=== PATIENT | female | born 1960 | race African-American/Black ===

== ENCOUNTER 2022-01-17 22:34 | Inpatient (IN) | payer MEDICARE, MEDICAID ==
[~2022-01-17] VITALS: Ht 161.3 cm; Wt 103.9 kg
[2022-01-17 22:34] VITALS: BP 140/70
[~2022-01-17 22:34] MED LIST: ASPI-1406 PO; ATOR20TA65 PO; BACL-141 PO; CARV12.545 PO; DOCU50CA13 PO; FERR-54 MT; FURO40TA5 PO; GLAT40SY SQ; METF-416 PO; MOME0.13 INH; SACU1TAB7 PO; TRAM50TA3 PO
[2022-01-18] MEDS ORDERED: NON FORMULARY PATIENT HOME MED SUBCUT SCH (00:15)
[2022-01-18] MEDS ORDERED: ONDANSETRON HCL 4MG/2ML INJ IV PRN (00:15)
[2022-01-18] MEDS ORDERED: BENZONATATE 100MG CAPSULE PO PRN (00:15)
[2022-01-18] MEDS ORDERED: DEXTROSE 50% WATER 50ML SYRINGE IV PRN (00:15)
[2022-01-18] MEDS ORDERED: CLONIDINE 0.1MG TABLET PO PRN (00:15)
[2022-01-18] MEDS ORDERED: NALOXONE HCL 0.4 MG/ML 1ML VIAL IV PRN (00:15)
[2022-01-18] MEDS ORDERED: NON FORMULARY PATIENT HOME MED XX SCH (00:15)
[2022-01-18] MEDS ORDERED: DIPHENHYDRAMINE 50MG/ML VIAL IV PRN (00:15)
[2022-01-18] MEDS ORDERED: IPRATROPIUM/ALBUTEROL 0.5-3(2.5)MG/3ML NEB HHN PRN (00:15)
[2022-01-18] MEDS ORDERED: *PATIENT'S OWN MEDICATION STORAGE XX SCH (02:15)
[2022-01-18] MEDS: HYDROCODONE/ACETAMINOPHEN 5/325MG TABLET PO PRN ×2 (03:04→13:47)
[2022-01-18 06:05] LABS: BASOPHILS % 0.3 % (0.0-2.0); EOSINOPHILS % 0.2 % (0.0-5.0); HEMOGLOBIN. 11.1 g/dL (12.0-16.0); LYMPHOCYTES % 15.6 % (20.0-50.0); MEAN CORPUSCULAR VOLUME 84.5 fL (81.0-99.0); MEAN PLATELET VOLUME 9.7 fl (7.4-10.4); MONOCYTES % 10.5 % (2.0-8.0); NEUTROPHILS % 73.4 % (40.0-76.0); PLATELET 308 x1000/uL (130-400); RED BLOOD CELL COUNT 4.26 mill/uL (4.2-5.4); RED CELL DISTRIBUTION WIDTH 15.8 % (11.6-14.6)
[2022-01-18 06:27] LABS: CHLORIDE 102 mEq/L (98-107)
[2022-01-18] MEDS: NAPROXEN 375MG TABLET PO PRN ×2 (07:06→07:32)
[2022-01-18] MEDS: INSULIN LISPRO 100 UNITS/ML SUBCUT SCH ×4 (07:15→21:00)
[2022-01-18] MEDS: BLOOD SUGAR DIAGNOSTIC STRIP TEST SCH ×4 (07:26→21:00)
[2022-01-18] MEDS: FUROSEMIDE 40MG TABLET PO SCH ×2 (07:36→17:38)
[2022-01-18] MEDS: PANTOPRAZOLE 40MG DR TABLET PO SCH (07:36)
[2022-01-18] MEDS: GABAPENTIN 300MG CAPSULE PO SCH ×3 (07:36→22:00)
[2022-01-18 08:00] VITALS: BP 99/51
[2022-01-18] MEDS: DOCUSATE SODIUM 100MG CAPSULE PO SCH ×2 (08:37→17:38)
[2022-01-18] MEDS: CARVEDILOL 12.5MG TABLET PO SCH ×2 (08:37→21:00)
[2022-01-18] MEDS: LACTULOSE 20G/30ML UDC PO SCH (08:37)
[2022-01-18] MEDS: ENOXAPARIN 30MG/0.3ML SYR SUBCUT SCH ×2 (08:37→21:09)
[2022-01-18] MEDS: ASPIRIN 81MG EC TABLET PO SCH (08:38)
[2022-01-18] MEDS: BACLOFEN 10MG TABLET PO SCH ×3 (08:38→17:38)
[2022-01-18] MEDS: POLYETHYLENE GLYCOL 3350 (17GM) 1 DOSE PACK PO SCH ×2 (08:38→09:00)
[2022-01-18] MEDS: METFORMIN HCL 500MG TABLET PO SCH ×2 (08:38→17:38)
[2022-01-18] MEDS: FERROUS SULFATE 325MG TABLET PO SCH (08:38)
[2022-01-18] MEDS: COPAXONE 40 MG/ML SUBCUT SCH (08:53)
[2022-01-18] MEDS ORDERED: PREDNISONE 20MG TABLET PO SCH (09:00)
[2022-01-18 20:00] VITALS: BP 106/46
[2022-01-18] MEDS: ATORVASTATIN CALCIUM 20MG TABLET PO SCH (21:09)
[2022-01-19] MEDS: HYDROCODONE/ACETAMINOPHEN 5/325MG TABLET PO PRN ×4 (03:36→20:41)
[2022-01-19] MEDS: BLOOD SUGAR DIAGNOSTIC STRIP TEST SCH ×4 (05:36→20:51)
[2022-01-19] MEDS: INSULIN LISPRO 100 UNITS/ML SUBCUT SCH ×4 (05:37→20:58)
[2022-01-19] MEDS: PANTOPRAZOLE 40MG DR TABLET PO SCH (06:27)
[2022-01-19] MEDS: FUROSEMIDE 40MG TABLET PO SCH ×2 (06:27→10:31)
[2022-01-19] MEDS: GABAPENTIN 300MG CAPSULE PO SCH ×2 (06:27→20:42)
[2022-01-19 07:04] LABS: BASOPHILS % 0.5 % (0.0-2.0); EOSINOPHILS % 0.1 % (0.0-5.0); HEMATOCRIT. 31.6 % (36.0-48.0); HEMOGLOBIN. 10.1 g/dL (12.0-16.0); LYMPHOCYTES % 8.4 % (20.0-50.0); MEAN CORPUSCULAR HEMOGLOBIN 26.7 pg (28.0-32.0); MEAN CORPUSCULAR VOLUME 83.3 fL (81.0-99.0); MEAN PLATELET VOLUME 9.8 fl (7.4-10.4); MONOCYTES % 7.1 % (2.0-8.0); NEUTROPHILS % 83.9 % (40.0-76.0); PLATELET 309 x1000/uL (130-400); RED CELL DISTRIBUTION WIDTH 15.6 % (11.6-14.6)
[2022-01-19 07:18] LABS: CHLORIDE 100 mEq/L (98-107)
[2022-01-19 07:26] LABS: FERRITIN 250 ng/mL (10-291)
[2022-01-19 07:41] LABS: TOTAL IRON BINDING CAPACITY 155 ug/dL (250-450)
[2022-01-19 07:43] LABS: VITAMIN B12 SERUM > 2000.0 pg/mL (211-911)
[2022-01-19 08:02] VITALS: BP 107/50
[2022-01-19] MEDS ORDERED: BACLOFEN 10MG TABLET PO SCH ×3 (08:15→13:00)
[2022-01-19] MEDS: POLYETHYLENE GLYCOL 3350 (17GM) 1 DOSE PACK PO SCH (09:00)
[2022-01-19] MEDS: LACTULOSE 20G/30ML UDC PO SCH (09:00)
[2022-01-19] MEDS ORDERED: GABAPENTIN 300MG CAPSULE PO SCH ×2 (10:00→13:00)
[2022-01-19] MEDS: PREDNISONE 10MG TABLET PO SCH (10:31)
[2022-01-19] MEDS: CARVEDILOL 12.5MG TABLET PO SCH ×2 (10:32→20:39)
[2022-01-19] MEDS: FERROUS SULFATE 325MG TABLET PO SCH (10:33)
[2022-01-19] MEDS: DOCUSATE SODIUM 100MG CAPSULE PO SCH ×2 (10:33→16:30)
[2022-01-19] MEDS: METFORMIN HCL 500MG TABLET PO SCH ×2 (10:36→16:30)
[2022-01-19] MEDS: ENOXAPARIN 30MG/0.3ML SYR SUBCUT SCH ×2 (10:40→20:43)
[2022-01-19] MEDS: ASPIRIN 81MG EC TABLET PO SCH (14:04)
[2022-01-19] MEDS: ASCORBIC ACID 500 MG TABLET PO SCH (14:04)
[2022-01-19] MEDS: ASMANEX 100 MCG ORI SCH (16:23)
[2022-01-19 20:00] VITALS: BP 99/51
[2022-01-19 20:05] LABS: CLARITY URINE CLOUDY (CLEAR); COLOR URINE YELLOW (YELLOW); KETONES URINE NEGATIVE (NEGATIVE); LEUKOCYTE ESTERASE URINE 3+ (NEGATIVE); NITRITE URINE POSITIVE (NEGATIVE); OCCULT BLOOD URINE 2+ (NEGATIVE); PH URINE 5.5 (4.5-8.0); PROTEIN URINE NEGATIVE (NEGATIVE); SPECIFIC GRAVITY URINE 1.009 (1.005-1.030); UROBILINOGEN URINE 0.2 E.U./dL (0.2-1.0)
[2022-01-19] MEDS: ATORVASTATIN CALCIUM 20MG TABLET PO SCH (20:37)
[2022-01-19] MEDS: BACLOFEN 10MG TABLET PO SCH (20:38)
[2022-01-20] MEDS: BACLOFEN 10MG TABLET PO SCH ×4 (05:22→23:34)
[2022-01-20] MEDS: GABAPENTIN 300MG CAPSULE PO SCH ×4 (05:22→23:32)
[2022-01-20] MEDS: HYDROCODONE/ACETAMINOPHEN 5/325MG TABLET PO PRN ×5 (05:23→23:33)
[2022-01-20] MEDS: PANTOPRAZOLE 40MG DR TABLET PO SCH (06:28)
[2022-01-20] MEDS: BLOOD SUGAR DIAGNOSTIC STRIP TEST SCH ×4 (06:39→21:03)
[2022-01-20] MEDS: FUROSEMIDE 40MG TABLET PO SCH ×2 (06:56→17:25)
[2022-01-20 07:58] VITALS: BP 114/59
[2022-01-20] MEDS: INSULIN LISPRO 100 UNITS/ML SUBCUT SCH ×4 (09:00→20:45)
[2022-01-20] MEDS: LACTULOSE 20G/30ML UDC PO SCH ×2 (09:00→10:18)
[2022-01-20] MEDS: CARVEDILOL 12.5MG TABLET PO SCH ×2 (09:00→20:33)
[2022-01-20] MEDS: POLYETHYLENE GLYCOL 3350 (17GM) 1 DOSE PACK PO SCH ×3 (09:00→17:25)
[2022-01-20] MEDS: ASPIRIN 81MG EC TABLET PO SCH (10:16)
[2022-01-20] MEDS: ENOXAPARIN 30MG/0.3ML SYR SUBCUT SCH ×2 (10:16→20:45)
[2022-01-20] MEDS: ASCORBIC ACID 500 MG TABLET PO SCH (10:17)
[2022-01-20] MEDS: PREDNISONE 10MG TABLET PO SCH (10:17)
[2022-01-20] MEDS: METFORMIN HCL 500MG TABLET PO SCH ×2 (10:18→17:25)
[2022-01-20] MEDS: FERROUS SULFATE 325MG TABLET PO SCH (10:18)
[2022-01-20] MEDS: DOCUSATE SODIUM 100MG CAPSULE PO SCH ×2 (10:18→17:00)
[2022-01-20] MEDS: ASMANEX 100 MCG ORI SCH ×2 (10:21→17:25)
[2022-01-20] MEDS: COPAXONE 40 MG/ML SUBCUT SCH (12:09)
[2022-01-20] MEDS ORDERED: LEVOFLOXACIN 500MG TABLET PO NR (16:30)
[2022-01-20 20:29] VITALS: BP 151/88
[2022-01-20] MEDS: ATORVASTATIN CALCIUM 20MG TABLET PO SCH (20:32)
[2022-01-21] MEDS: GABAPENTIN 300MG CAPSULE PO SCH ×3 (05:49→18:57)
[2022-01-21] MEDS: FUROSEMIDE 40MG TABLET PO SCH ×2 (05:50→17:51)
[2022-01-21] MEDS: HYDROCODONE/ACETAMINOPHEN 5/325MG TABLET PO PRN ×3 (05:51→18:58)
[2022-01-21] MEDS: BLOOD SUGAR DIAGNOSTIC STRIP TEST SCH ×4 (06:28→21:30)
[2022-01-21] MEDS: BACLOFEN 10MG TABLET PO SCH ×3 (06:33→18:57)
[2022-01-21] MEDS: PANTOPRAZOLE 40MG DR TABLET PO SCH (06:51)
[2022-01-21] MEDS: INSULIN LISPRO 100 UNITS/ML SUBCUT SCH ×4 (06:54→21:42)
[2022-01-21 07:44] VITALS: BP 101/51
[2022-01-21 07:48] LABS: BASOPHILS % 0.2 % (0.0-2.0); EOSINOPHILS % 0.1 % (0.0-5.0); HEMATOCRIT. 29.6 % (36.0-48.0); HEMOGLOBIN. 9.6 g/dL (12.0-16.0); MEAN CORPUSCULAR HEMOGLOBIN 26.8 pg (28.0-32.0); MEAN CORPUSCULAR VOLUME 82.6 fL (81.0-99.0); MEAN PLATELET VOLUME 9.4 fl (7.4-10.4); NEUTROPHILS % 85.7 % (40.0-76.0); PLATELET 277 x1000/uL (130-400); RED BLOOD CELL COUNT 3.58 mill/uL (4.2-5.4); RED CELL DISTRIBUTION WIDTH 15.8 % (11.6-14.6)
[2022-01-21 07:51] LABS: CHLORIDE 98 mEq/L (98-107)
[2022-01-21] MEDS: DOCUSATE SODIUM 100MG CAPSULE PO SCH ×2 (08:46→17:51)
[2022-01-21] MEDS: ENOXAPARIN 30MG/0.3ML SYR SUBCUT SCH ×2 (08:46→21:30)
[2022-01-21] MEDS: POLYETHYLENE GLYCOL 3350 (17GM) 1 DOSE PACK PO SCH (08:46)
[2022-01-21] MEDS: ASPIRIN 81MG EC TABLET PO SCH (08:46)
[2022-01-21] MEDS: PREDNISONE 20MG TABLET PO SCH (08:47)
[2022-01-21] MEDS: METFORMIN HCL 500MG TABLET PO SCH ×2 (08:47→17:51)
[2022-01-21] MEDS: ASCORBIC ACID 500 MG TABLET PO SCH (08:47)
[2022-01-21] MEDS: FERROUS SULFATE 325MG TABLET PO SCH (08:47)
[2022-01-21] MEDS: LACTULOSE 20G/30ML UDC PO SCH (09:00)
[2022-01-21] MEDS: CARVEDILOL 12.5MG TABLET PO SCH ×2 (09:00→21:00)
[2022-01-21] MEDS: ASMANEX 100 MCG ORI SCH ×2 (09:14→17:51)
[2022-01-21] MEDS ORDERED: LEVOFLOXACIN 250MG TABLET PO SCH (11:00)
[2022-01-21] MEDS ORDERED: NON FORMULARY PATIENT HOME MED XX SCH (15:00)
[2022-01-21] MEDS ORDERED: VANCOMYCIN 1500MG in DEXTROSE 5% WATER 250ML IV SCH (16:00)
[2022-01-21] MEDS: SACUBITRIL/VALSARTAN 49MG/51MG TABLET PO SCH (17:51)
[2022-01-21 20:00] VITALS: BP 105/55
[2022-01-21] MEDS: ATORVASTATIN CALCIUM 20MG TABLET PO SCH (21:29)
[2022-01-22] MEDS: BACLOFEN 10MG TABLET PO SCH ×5 (00:54→23:54)
[2022-01-22] MEDS: GABAPENTIN 300MG CAPSULE PO SCH ×5 (00:54→23:54)
[2022-01-22] MEDS: HYDROCODONE/ACETAMINOPHEN 5/325MG TABLET PO PRN ×4 (01:00→18:32)
[2022-01-22] MEDS: VANCOMYCIN 750 MG in DEXT 5% WATER 250 ML IV SCH ×2 (07:04→18:33)
[2022-01-22] MEDS: FUROSEMIDE 40MG TABLET PO SCH ×2 (07:07→17:18)
[2022-01-22] MEDS: PANTOPRAZOLE 40MG DR TABLET PO SCH (07:07)
[2022-01-22] MEDS: BLOOD SUGAR DIAGNOSTIC STRIP TEST SCH ×4 (07:08→20:44)
[2022-01-22 08:00] VITALS: BP 97/50
[2022-01-22] MEDS: POLYETHYLENE GLYCOL 3350 (17GM) 1 DOSE PACK PO SCH (08:57)
[2022-01-22] MEDS: SACUBITRIL/VALSARTAN 49MG/51MG TABLET PO SCH ×2 (08:57→21:23)
[2022-01-22] MEDS: METFORMIN HCL 500MG TABLET PO SCH ×2 (08:58→17:17)
[2022-01-22] MEDS: FERROUS SULFATE 325MG TABLET PO SCH (08:58)
[2022-01-22] MEDS: PREDNISONE 20MG TABLET PO SCH (08:58)
[2022-01-22] MEDS: ASPIRIN 81MG EC TABLET PO SCH (08:58)
[2022-01-22] MEDS: ASCORBIC ACID 500 MG TABLET PO SCH (08:58)
[2022-01-22] MEDS: DOCUSATE SODIUM 100MG CAPSULE PO SCH ×2 (08:58→17:18)
[2022-01-22] MEDS: LACTULOSE 20G/30ML UDC PO SCH ×4 (08:59→21:21)
[2022-01-22] MEDS: ASMANEX 100 MCG ORI SCH ×2 (08:59→17:18)
[2022-01-22] MEDS: CARVEDILOL 12.5MG TABLET PO SCH ×2 (08:59→21:00)
[2022-01-22] MEDS: ENOXAPARIN 30MG/0.3ML SYR SUBCUT SCH ×2 (08:59→21:22)
[2022-01-22] MEDS: INSULIN LISPRO 100 UNITS/ML SUBCUT SCH ×4 (09:00→21:32)
[2022-01-22] MEDS ORDERED: BISACODYL 10MG SUPP PR PRN (11:15)
[2022-01-22 20:00] VITALS: BP 103/54
[2022-01-22] MEDS: ATORVASTATIN CALCIUM 20MG TABLET PO SCH (21:21)
[2022-01-23] MEDS: HYDROCODONE/ACETAMINOPHEN 5/325MG TABLET PO PRN ×4 (00:12→18:25)
[2022-01-23] MEDS: BLOOD SUGAR DIAGNOSTIC STRIP TEST SCH ×4 (05:28→21:00)
[2022-01-23] MEDS: GABAPENTIN 300MG CAPSULE PO SCH ×3 (06:02→18:20)
[2022-01-23] MEDS: BACLOFEN 10MG TABLET PO SCH ×3 (06:02→18:20)
[2022-01-23] MEDS: PANTOPRAZOLE 40MG DR TABLET PO SCH (06:02)
[2022-01-23] MEDS: FUROSEMIDE 40MG TABLET PO SCH ×2 (06:02→18:21)
[2022-01-23] MEDS: INSULIN LISPRO 100 UNITS/ML SUBCUT SCH ×4 (06:11→21:00)
[2022-01-23] MEDS: VANCOMYCIN 750 MG in DEXT 5% WATER 250 ML IV SCH (06:46)
[2022-01-23 07:58] LABS: CHLORIDE 99 mEq/L (98-107)
[2022-01-23 08:00] VITALS: BP 105/55
[2022-01-23] MEDS: SACUBITRIL/VALSARTAN 49MG/51MG TABLET PO SCH ×2 (09:00→18:21)
[2022-01-23] MEDS: ASMANEX 100 MCG ORI SCH ×2 (09:00→17:00)
[2022-01-23] MEDS: COPAXONE 40 MG/ML SUBCUT SCH (09:00)
[2022-01-23] MEDS: DOCUSATE SODIUM 100MG CAPSULE PO SCH ×2 (09:36→18:22)
[2022-01-23] MEDS: PREDNISONE 10MG TABLET PO SCH (09:36)
[2022-01-23] MEDS: ASPIRIN 81MG EC TABLET PO SCH (09:36)
[2022-01-23] MEDS: FERROUS SULFATE 325MG TABLET PO SCH (09:36)
[2022-01-23] MEDS: METFORMIN HCL 500MG TABLET PO SCH ×2 (09:36→18:21)
[2022-01-23] MEDS: ASCORBIC ACID 500 MG TABLET PO SCH (09:36)
[2022-01-23] MEDS: CARVEDILOL 12.5MG TABLET PO SCH ×2 (09:37→21:00)
[2022-01-23] MEDS: ENOXAPARIN 30MG/0.3ML SYR SUBCUT SCH ×2 (09:37→21:56)
[2022-01-23] MEDS: LACTULOSE 20G/30ML UDC PO SCH (09:38)
[2022-01-23] MEDS: POLYETHYLENE GLYCOL 3350 (17GM) 1 DOSE PACK PO SCH (09:38)
[2022-01-23 20:00] VITALS: BP 84/37
[2022-01-23] MEDS: ATORVASTATIN CALCIUM 20MG TABLET PO SCH (21:56)
[2022-01-23] MEDS: SULFAMETHOXAZOLE/TRIMETHOPRIM 800/160MG TABLET PO SCH (21:56)
[2022-01-24] MEDS ORDERED: VANCOMYCIN 1G PREMIX 200 ML IV SCH
[2022-01-24] MEDS: BACLOFEN 10MG TABLET PO SCH ×4 (00:38→19:00)
[2022-01-24] MEDS: GABAPENTIN 300MG CAPSULE PO SCH ×4 (00:38→18:59)
[2022-01-24] MEDS: HYDROCODONE/ACETAMINOPHEN 5/325MG TABLET PO PRN ×4 (00:41→19:00)
[2022-01-24] MEDS: BLOOD SUGAR DIAGNOSTIC STRIP TEST SCH ×4 (06:30→21:54)
[2022-01-24] MEDS: PANTOPRAZOLE 40MG DR TABLET PO SCH (06:38)
[2022-01-24] MEDS: FUROSEMIDE 40MG TABLET PO SCH ×2 (06:39→17:13)
[2022-01-24 08:00] VITALS: BP 99/52
[2022-01-24] MEDS: FERROUS SULFATE 325MG TABLET PO SCH (08:23)
[2022-01-24] MEDS: ASCORBIC ACID 500 MG TABLET PO SCH (08:24)
[2022-01-24] MEDS: METFORMIN HCL 500MG TABLET PO SCH ×2 (08:24→17:13)
[2022-01-24] MEDS: PREDNISONE 10MG TABLET PO SCH (08:24)
[2022-01-24] MEDS: SULFAMETHOXAZOLE/TRIMETHOPRIM 800/160MG TABLET PO SCH ×2 (08:24→21:53)
[2022-01-24] MEDS: SACUBITRIL/VALSARTAN 49MG/51MG TABLET PO SCH ×2 (08:24→17:13)
[2022-01-24] MEDS: ASPIRIN 81MG EC TABLET PO SCH (08:24)
[2022-01-24] MEDS: DOCUSATE SODIUM 100MG CAPSULE PO SCH ×2 (08:24→17:13)
[2022-01-24] MEDS: ENOXAPARIN 30MG/0.3ML SYR SUBCUT SCH ×2 (08:25→21:53)
[2022-01-24] MEDS: ASMANEX 100 MCG ORI SCH ×2 (08:25→17:13)
[2022-01-24] MEDS: LACTULOSE 20G/30ML UDC PO SCH (08:31)
[2022-01-24] MEDS: POLYETHYLENE GLYCOL 3350 (17GM) 1 DOSE PACK PO SCH (08:31)
[2022-01-24] MEDS: CARVEDILOL 12.5MG TABLET PO SCH ×2 (08:32→21:00)
[2022-01-24] MEDS: INSULIN LISPRO 100 UNITS/ML SUBCUT SCH ×4 (08:33→21:00)
[2022-01-24 20:00] VITALS: BP 93/56
[2022-01-24] MEDS: ATORVASTATIN CALCIUM 20MG TABLET PO SCH (21:53)
[2022-01-25] MEDS: GABAPENTIN 300MG CAPSULE PO SCH ×4 (00:44→18:02)
[2022-01-25] MEDS: HYDROCODONE/ACETAMINOPHEN 5/325MG TABLET PO PRN ×4 (00:46→18:02)
[2022-01-25] MEDS: BACLOFEN 10MG TABLET PO SCH ×4 (00:47→18:02)
[2022-01-25] MEDS: PANTOPRAZOLE 40MG DR TABLET PO SCH (06:27)
[2022-01-25] MEDS: FUROSEMIDE 40MG TABLET PO SCH ×2 (06:28→18:02)
[2022-01-25] MEDS: BLOOD SUGAR DIAGNOSTIC STRIP TEST SCH ×4 (06:30→20:54)
[2022-01-25] MEDS: INSULIN LISPRO 100 UNITS/ML SUBCUT SCH ×4 (06:30→20:54)
[2022-01-25 08:00] VITALS: BP 94/55
[2022-01-25] MEDS: SACUBITRIL/VALSARTAN 49MG/51MG TABLET PO SCH ×2 (09:00→17:00)
[2022-01-25] MEDS: COPAXONE 40 MG/ML SUBCUT SCH (09:00)
[2022-01-25] MEDS: ASMANEX 100 MCG ORI SCH ×2 (09:00→17:00)
[2022-01-25] MEDS: SULFAMETHOXAZOLE/TRIMETHOPRIM 800/160MG TABLET PO SCH ×2 (09:45→20:53)
[2022-01-25] MEDS: ASPIRIN 81MG EC TABLET PO SCH (09:45)
[2022-01-25] MEDS: ASCORBIC ACID 500 MG TABLET PO SCH (09:45)
[2022-01-25] MEDS: METFORMIN HCL 500MG TABLET PO SCH ×2 (09:45→17:18)
[2022-01-25] MEDS: DOCUSATE SODIUM 100MG CAPSULE PO SCH ×2 (09:45→17:18)
[2022-01-25] MEDS: FERROUS SULFATE 325MG TABLET PO SCH (09:45)
[2022-01-25] MEDS: CARVEDILOL 12.5MG TABLET PO SCH ×2 (09:45→17:21)
[2022-01-25] MEDS: POLYETHYLENE GLYCOL 3350 (17GM) 1 DOSE PACK PO SCH (09:45)
[2022-01-25] MEDS: ENOXAPARIN 30MG/0.3ML SYR SUBCUT SCH ×2 (09:46→20:53)
[2022-01-25] MEDS: LACTULOSE 20G/30ML UDC PO SCH (09:49)
[2022-01-25] MEDS ORDERED: PHENYLEPHRINE/SHK LV/MO/PET RECTAL OINTMENT 57GM PR PRN (11:00)
[2022-01-25] MEDS: HEMORRHOIDAL SUPP PR SCH ×2 (11:00→20:54)
[2022-01-25] MEDS: LORATADINE 10MG TABLET PO SCH (12:19)
[2022-01-25] MEDS: THROAT LOZENGES-BENZOCAINE/MENTH/CETYLPYRD CL LOZENGES MM PRN (12:29)
[2022-01-25 14:08] LABS: 25-HYDROXY VITAMIN D3 69 ng/mL (.)
[2022-01-25 20:00] VITALS: BP 85/48
[2022-01-25] MEDS: ATORVASTATIN CALCIUM 20MG TABLET PO SCH (20:53)
[2022-01-25 20:55] LABS: T4 FREE 1.42 ng/dL (0.76-1.46)
[2022-01-26] MEDS: HYDROCODONE/ACETAMINOPHEN 5/325MG TABLET PO PRN ×4 (00:32→18:02)
[2022-01-26] MEDS: BACLOFEN 10MG TABLET PO SCH ×4 (00:32→18:01)
[2022-01-26] MEDS: GABAPENTIN 300MG CAPSULE PO SCH ×4 (00:33→18:01)
[2022-01-26] MEDS: FUROSEMIDE 40MG TABLET PO SCH ×2 (06:34→18:02)
[2022-01-26] MEDS: BLOOD SUGAR DIAGNOSTIC STRIP TEST SCH ×4 (06:42→21:28)
[2022-01-26 07:37] LABS: EOSINOPHILS % 1.4 % (0.0-5.0); HEMATOCRIT. 28.7 % (36.0-48.0); HEMOGLOBIN. 9.3 g/dL (12.0-16.0); LYMPHOCYTES % 17.6 % (20.0-50.0); MEAN CORPUSCULAR HEMOGLOBIN 26.6 pg (28.0-32.0); MEAN CORPUSCULAR VOLUME 81.8 fL (81.0-99.0); MEAN PLATELET VOLUME 8.5 fl (7.4-10.4); MONOCYTES % 9.4 % (2.0-8.0); NEUTROPHILS % 70.6 % (40.0-76.0); PLATELET 300 x1000/uL (130-400); RED BLOOD CELL COUNT 3.51 mill/uL (4.2-5.4)
[2022-01-26 07:48] LABS: CHLORIDE 96 mEq/L (98-107)
[2022-01-26 08:00] VITALS: BP 112/47
[2022-01-26] MEDS: HEMORRHOIDAL SUPP PR SCH ×3 (09:00→21:00)
[2022-01-26] MEDS: LACTULOSE 20G/30ML UDC PO SCH (09:00)
[2022-01-26] MEDS: INSULIN LISPRO 100 UNITS/ML SUBCUT SCH ×4 (09:00→22:00)
[2022-01-26] MEDS: FERROUS SULFATE 325MG TABLET PO SCH (09:40)
[2022-01-26] MEDS: ENOXAPARIN 30MG/0.3ML SYR SUBCUT SCH ×2 (09:40→21:42)
[2022-01-26] MEDS: ASMANEX 100 MCG ORI SCH ×2 (09:40→18:05)
[2022-01-26] MEDS: ASPIRIN 81MG EC TABLET PO SCH (09:40)
[2022-01-26] MEDS: ASCORBIC ACID 500 MG TABLET PO SCH (09:41)
[2022-01-26] MEDS: METFORMIN HCL 500MG TABLET PO SCH ×2 (09:41→18:01)
[2022-01-26] MEDS: SULFAMETHOXAZOLE/TRIMETHOPRIM 800/160MG TABLET PO SCH ×2 (09:41→21:40)
[2022-01-26] MEDS: SACUBITRIL/VALSARTAN 49MG/51MG TABLET PO SCH ×2 (09:41→18:02)
[2022-01-26] MEDS: LORATADINE 10MG TABLET PO SCH (09:41)
[2022-01-26] MEDS: CARVEDILOL 12.5MG TABLET PO SCH ×2 (09:42→21:00)
[2022-01-26] MEDS: DOCUSATE SODIUM 100MG CAPSULE PO SCH ×2 (17:00→17:59)
[2022-01-26] MEDS: POLYETHYLENE GLYCOL 3350 (17GM) 1 DOSE PACK PO SCH (17:59)
[2022-01-26 20:00] VITALS: BP 96/42
[2022-01-26] MEDS: ATORVASTATIN CALCIUM 20MG TABLET PO SCH (21:40)
[2022-01-26] MEDS: ACETAMINOPHEN 325MG TABLET PO PRN (21:41)
[2022-01-27] MEDS: THROAT LOZENGES-BENZOCAINE/MENTH/CETYLPYRD CL LOZENGES MM PRN ×2 (00:33→21:41)
[2022-01-27] MEDS: MIDODRINE HCL 5MG TABLET PO SCH ×4 (01:54→17:23)
[2022-01-27] MEDS: GABAPENTIN 300MG CAPSULE PO SCH ×5 (05:49→23:17)
[2022-01-27] MEDS: BACLOFEN 10MG TABLET PO SCH ×5 (05:49→23:17)
[2022-01-27] MEDS: HYDROCODONE/ACETAMINOPHEN 5/325MG TABLET PO PRN ×4 (05:50→23:28)
[2022-01-27] MEDS: BLOOD SUGAR DIAGNOSTIC STRIP TEST SCH ×4 (06:06→20:56)
[2022-01-27 08:57] VITALS: BP 130/79
[2022-01-27] MEDS: LACTULOSE 20G/30ML UDC PO SCH ×2 (09:00→09:06)
[2022-01-27] MEDS: INSULIN LISPRO 100 UNITS/ML SUBCUT SCH ×4 (09:00→20:58)
[2022-01-27] MEDS: METFORMIN HCL 500MG TABLET PO SCH ×2 (09:07→17:17)
[2022-01-27] MEDS: SACUBITRIL/VALSARTAN 49MG/51MG TABLET PO SCH ×2 (09:07→17:18)
[2022-01-27] MEDS: FERROUS SULFATE 325MG TABLET PO SCH (09:08)
[2022-01-27] MEDS: CARVEDILOL 12.5MG TABLET PO SCH ×2 (09:08→20:24)
[2022-01-27] MEDS: FUROSEMIDE 40MG TABLET PO SCH ×2 (09:08→17:17)
[2022-01-27] MEDS: DOCUSATE SODIUM 100MG CAPSULE PO SCH ×2 (09:08→17:17)
[2022-01-27] MEDS: ENOXAPARIN 30MG/0.3ML SYR SUBCUT SCH ×2 (09:08→20:25)
[2022-01-27] MEDS: ASCORBIC ACID 500 MG TABLET PO SCH (09:08)
[2022-01-27] MEDS: ASPIRIN 81MG EC TABLET PO SCH (09:08)
[2022-01-27] MEDS: LORATADINE 10MG TABLET PO SCH (09:08)
[2022-01-27] MEDS: SULFAMETHOXAZOLE/TRIMETHOPRIM 800/160MG TABLET PO SCH ×2 (09:09→20:23)
[2022-01-27] MEDS: ASMANEX 100 MCG ORI SCH ×2 (09:09→17:18)
[2022-01-27] MEDS: HEMORRHOIDAL SUPP PR SCH ×2 (09:09→20:24)
[2022-01-27] MEDS: POLYETHYLENE GLYCOL 3350 (17GM) 1 DOSE PACK PO SCH (09:10)
[2022-01-27] MEDS ORDERED: BARIUM SULFATE 176 GM SUSP.RECON ONE (11:44)
[2022-01-27] MEDS: COPAXONE 40 MG/ML SUBCUT SCH (17:18)
[2022-01-27 20:00] VITALS: BP 99/39
[2022-01-27] MEDS: ATORVASTATIN CALCIUM 20MG TABLET PO SCH (20:24)
[2022-01-28] MEDS: GABAPENTIN 300MG CAPSULE PO SCH ×3 (06:10→18:44)
[2022-01-28] MEDS: BACLOFEN 10MG TABLET PO SCH ×3 (06:11→18:44)
[2022-01-28] MEDS: FUROSEMIDE 40MG TABLET PO SCH ×2 (06:19→17:25)
[2022-01-28] MEDS: HYDROCODONE/ACETAMINOPHEN 5/325MG TABLET PO PRN ×3 (06:20→18:45)
[2022-01-28] MEDS: THROAT LOZENGES-BENZOCAINE/MENTH/CETYLPYRD CL LOZENGES MM PRN (06:21)
[2022-01-28] MEDS: BLOOD SUGAR DIAGNOSTIC STRIP TEST SCH ×4 (06:54→21:00)
[2022-01-28 08:00] VITALS: BP 107/50
[2022-01-28] MEDS: CARVEDILOL 12.5MG TABLET PO SCH ×2 (09:00→21:00)
[2022-01-28] MEDS: INSULIN LISPRO 100 UNITS/ML SUBCUT SCH ×4 (09:00→22:28)
[2022-01-28] MEDS: LACTULOSE 20G/30ML UDC PO SCH (09:00)
[2022-01-28] MEDS: POLYETHYLENE GLYCOL 3350 (17GM) 1 DOSE PACK PO SCH (09:00)
[2022-01-28] MEDS: ASPIRIN 81MG EC TABLET PO SCH (09:04)
[2022-01-28] MEDS: ASMANEX 100 MCG ORI SCH ×2 (09:04→17:25)
[2022-01-28] MEDS: LORATADINE 10MG TABLET PO SCH (09:04)
[2022-01-28] MEDS: DOCUSATE SODIUM 100MG CAPSULE PO SCH ×2 (09:04→17:25)
[2022-01-28] MEDS: MIDODRINE HCL 5MG TABLET PO SCH ×3 (09:05→17:26)
[2022-01-28] MEDS: ASCORBIC ACID 500 MG TABLET PO SCH (09:05)
[2022-01-28] MEDS: SACUBITRIL/VALSARTAN 49MG/51MG TABLET PO SCH ×2 (09:06→17:26)
[2022-01-28] MEDS: FERROUS SULFATE 325MG TABLET PO SCH (09:06)
[2022-01-28] MEDS: METFORMIN HCL 500MG TABLET PO SCH ×2 (09:06→17:25)
[2022-01-28] MEDS: SULFAMETHOXAZOLE/TRIMETHOPRIM 800/160MG TABLET PO SCH ×2 (09:06→20:56)
[2022-01-28] MEDS: ENOXAPARIN 30MG/0.3ML SYR SUBCUT SCH ×2 (09:07→20:56)
[2022-01-28] MEDS: HEMORRHOIDAL SUPP PR SCH ×2 (09:46→20:57)
[2022-01-28 09:57] LABS: BASOPHILS % 0.6 % (0.0-2.0); EOSINOPHILS % 2.1 % (0.0-5.0); HEMATOCRIT. 27.4 % (36.0-48.0); HEMOGLOBIN. 8.9 g/dL (12.0-16.0); LYMPHOCYTES % 13.9 % (20.0-50.0); MEAN CORPUSCULAR HEMOGLOBIN 26.6 pg (28.0-32.0); MEAN CORPUSCULAR VOLUME 82.1 fL (81.0-99.0); MONOCYTES % 8.5 % (2.0-8.0); NEUTROPHILS % 74.9 % (40.0-76.0); PLATELET 290 x1000/uL (130-400); RED BLOOD CELL COUNT 3.34 mill/uL (4.2-5.4); RED CELL DISTRIBUTION WIDTH 15.3 % (11.6-14.6)
[2022-01-28 10:03] LABS: CHLORIDE 98 mEq/L (98-107)
[2022-01-28 20:00] VITALS: BP 101/49
[2022-01-28] MEDS: ATORVASTATIN CALCIUM 20MG TABLET PO SCH (20:56)
[2022-01-29] MEDS: GABAPENTIN 300MG CAPSULE PO SCH ×5 (00:27→23:21)
[2022-01-29] MEDS: BACLOFEN 10MG TABLET PO SCH ×5 (00:27→23:21)
[2022-01-29] MEDS: HYDROCODONE/ACETAMINOPHEN 5/325MG TABLET PO PRN ×5 (00:28→23:24)
[2022-01-29] MEDS: BLOOD SUGAR DIAGNOSTIC STRIP TEST SCH ×4 (05:59→21:00)
[2022-01-29] MEDS: INSULIN LISPRO 100 UNITS/ML SUBCUT SCH ×4 (06:22→21:00)
[2022-01-29] MEDS: FUROSEMIDE 40MG TABLET PO SCH ×2 (06:37→18:51)
[2022-01-29 08:00] VITALS: BP 101/46
[2022-01-29] MEDS: LACTULOSE 20G/30ML UDC PO SCH (09:00)
[2022-01-29] MEDS: CARVEDILOL 12.5MG TABLET PO SCH ×2 (09:00→22:14)
[2022-01-29] MEDS: MIDODRINE HCL 5MG TABLET PO SCH ×3 (09:56→17:28)
[2022-01-29] MEDS: LORATADINE 10MG TABLET PO SCH (09:57)
[2022-01-29] MEDS: ASPIRIN 81MG EC TABLET PO SCH (09:57)
[2022-01-29] MEDS: FERROUS SULFATE 325MG TABLET PO SCH (09:57)
[2022-01-29] MEDS: SACUBITRIL/VALSARTAN 49MG/51MG TABLET PO SCH ×2 (09:57→17:28)
[2022-01-29] MEDS: POLYETHYLENE GLYCOL 3350 (17GM) 1 DOSE PACK PO SCH (09:57)
[2022-01-29] MEDS: HEMORRHOIDAL SUPP PR SCH ×2 (09:57→22:14)
[2022-01-29] MEDS: METFORMIN HCL 500MG TABLET PO SCH ×2 (09:57→17:28)
[2022-01-29] MEDS: DOCUSATE SODIUM 100MG CAPSULE PO SCH ×2 (09:57→17:28)
[2022-01-29] MEDS: ASMANEX 100 MCG ORI SCH ×2 (09:57→17:28)
[2022-01-29] MEDS: ENOXAPARIN 30MG/0.3ML SYR SUBCUT SCH ×2 (09:58→22:13)
[2022-01-29] MEDS: ASCORBIC ACID 500 MG TABLET PO SCH (09:58)
[2022-01-29] MEDS: THROAT LOZENGES-BENZOCAINE/MENTH/CETYLPYRD CL LOZENGES MM PRN (10:09)
[2022-01-29] MEDS ORDERED: NON FORMULARY PATIENT HOME MED XX SCH (17:00)
[2022-01-29 20:00] VITALS: BP 126/65
[2022-01-29] MEDS: ATORVASTATIN CALCIUM 20MG TABLET PO SCH (22:15)
[2022-01-30] MEDS: FUROSEMIDE 40MG TABLET PO SCH ×2 (06:49→17:55)
[2022-01-30] MEDS: BACLOFEN 10MG TABLET PO SCH ×3 (06:49→18:00)
[2022-01-30] MEDS: HYDROCODONE/ACETAMINOPHEN 5/325MG TABLET PO PRN ×2 (06:49→18:17)
[2022-01-30] MEDS: GABAPENTIN 300MG CAPSULE PO SCH ×3 (06:49→17:55)
[2022-01-30] MEDS: BLOOD SUGAR DIAGNOSTIC STRIP TEST SCH ×4 (06:50→21:50)
[2022-01-30 08:00] VITALS: BP 103/55
[2022-01-30] MEDS: LACTULOSE 20G/30ML UDC PO SCH (09:00)
[2022-01-30] MEDS: INSULIN LISPRO 100 UNITS/ML SUBCUT SCH ×4 (09:00→21:56)
[2022-01-30] MEDS: ASMANEX 100 MCG ORI SCH ×2 (09:00→17:00)
[2022-01-30] MEDS: HEMORRHOIDAL SUPP PR SCH ×2 (09:00→21:54)
[2022-01-30] MEDS: COPAXONE 40 MG/ML SUBCUT SCH (09:00)
[2022-01-30] MEDS: LORATADINE 10MG TABLET PO SCH (09:44)
[2022-01-30] MEDS: FERROUS SULFATE 325MG TABLET PO SCH (09:44)
[2022-01-30] MEDS: ASCORBIC ACID 500 MG TABLET PO SCH (09:44)
[2022-01-30] MEDS: DOCUSATE SODIUM 100MG CAPSULE PO SCH ×2 (09:44→17:55)
[2022-01-30] MEDS: METFORMIN HCL 500MG TABLET PO SCH ×2 (09:45→17:55)
[2022-01-30] MEDS: SACUBITRIL/VALSARTAN 49MG/51MG TABLET PO SCH ×2 (09:45→17:55)
[2022-01-30] MEDS: CARVEDILOL 12.5MG TABLET PO SCH ×2 (09:46→21:53)
[2022-01-30] MEDS: MIDODRINE HCL 5MG TABLET PO SCH ×3 (09:46→17:59)
[2022-01-30] MEDS: ASPIRIN 81MG EC TABLET PO SCH (09:47)
[2022-01-30] MEDS: ENOXAPARIN 30MG/0.3ML SYR SUBCUT SCH ×2 (09:47→21:56)
[2022-01-30] MEDS: POLYETHYLENE GLYCOL 3350 (17GM) 1 DOSE PACK PO SCH (09:47)
[2022-01-30 20:00] VITALS: BP 110/40
[2022-01-30] MEDS: ATORVASTATIN CALCIUM 20MG TABLET PO SCH (21:53)
[2022-01-31 00:15] VITALS: BP 105/52
[2022-01-31] MEDS: BACLOFEN 10MG TABLET PO SCH ×5 (00:24→23:35)
[2022-01-31] MEDS: GABAPENTIN 300MG CAPSULE PO SCH ×5 (00:24→23:34)
[2022-01-31] MEDS: HYDROCODONE/ACETAMINOPHEN 5/325MG TABLET PO PRN ×4 (00:32→18:06)
[2022-01-31 06:00] VITALS: BP 102/53
[2022-01-31] MEDS: BLOOD SUGAR DIAGNOSTIC STRIP TEST SCH ×4 (06:30→20:57)
[2022-01-31] MEDS: FUROSEMIDE 40MG TABLET PO SCH ×2 (06:37→16:57)
[2022-01-31 08:00] VITALS: BP 92/51
[2022-01-31] MEDS: INSULIN LISPRO 100 UNITS/ML SUBCUT SCH ×4 (09:00→20:56)
[2022-01-31] MEDS: LACTULOSE 20G/30ML UDC PO SCH (09:00)
[2022-01-31] MEDS: POLYETHYLENE GLYCOL 3350 (17GM) 1 DOSE PACK PO SCH (09:00)
[2022-01-31] MEDS: SACUBITRIL/VALSARTAN 49MG/51MG TABLET PO SCH ×2 (09:00→17:00)
[2022-01-31] MEDS: CARVEDILOL 12.5MG TABLET PO SCH ×2 (09:00→20:51)
[2022-01-31] MEDS: ASMANEX 100 MCG ORI SCH ×2 (09:17→17:00)
[2022-01-31] MEDS: HEMORRHOIDAL SUPP PR SCH (09:17)
[2022-01-31] MEDS: ENOXAPARIN 30MG/0.3ML SYR SUBCUT SCH ×2 (09:17→20:55)
[2022-01-31] MEDS: METFORMIN HCL 500MG TABLET PO SCH ×2 (09:18→16:57)
[2022-01-31] MEDS: ASPIRIN 81MG EC TABLET PO SCH (09:18)
[2022-01-31] MEDS: FERROUS SULFATE 325MG TABLET PO SCH (09:18)
[2022-01-31] MEDS: MIDODRINE HCL 5MG TABLET PO SCH ×3 (09:18→16:57)
[2022-01-31] MEDS: ASCORBIC ACID 500 MG TABLET PO SCH (09:18)
[2022-01-31] MEDS: LORATADINE 10MG TABLET PO SCH (09:18)
[2022-01-31] MEDS: DOCUSATE SODIUM 100MG CAPSULE PO SCH ×2 (09:18→16:57)
[2022-01-31] MEDS ORDERED: HEMORRHOIDAL SUPP PR PRN (09:30)
[2022-01-31 20:17] VITALS: BP 110/27
[2022-01-31] MEDS: ATORVASTATIN CALCIUM 20MG TABLET PO SCH (20:44)
[2022-02-01] MEDS: HYDROCODONE/ACETAMINOPHEN 5/325MG TABLET PO PRN ×4 (03:16→23:30)
[2022-02-01] MEDS: GABAPENTIN 300MG CAPSULE PO SCH ×4 (06:00→23:07)
[2022-02-01] MEDS: BACLOFEN 10MG TABLET PO SCH ×4 (06:00→23:07)
[2022-02-01] MEDS: BLOOD SUGAR DIAGNOSTIC STRIP TEST SCH ×4 (06:07→21:30)
[2022-02-01] MEDS: FUROSEMIDE 40MG TABLET PO SCH ×2 (07:15→16:36)
[2022-02-01 08:00] VITALS: BP 101/48
[2022-02-01] MEDS: ASPIRIN 81MG EC TABLET PO SCH (08:45)
[2022-02-01] MEDS: LORATADINE 10MG TABLET PO SCH (08:45)
[2022-02-01] MEDS: ASCORBIC ACID 500 MG TABLET PO SCH (08:45)
[2022-02-01] MEDS: METFORMIN HCL 500MG TABLET PO SCH ×2 (08:45→16:36)
[2022-02-01] MEDS: DOCUSATE SODIUM 100MG CAPSULE PO SCH ×2 (08:45→16:36)
[2022-02-01] MEDS: FERROUS SULFATE 325MG TABLET PO SCH (08:46)
[2022-02-01] MEDS: MIDODRINE HCL 5MG TABLET PO SCH ×3 (08:46→16:44)
[2022-02-01] MEDS: ENOXAPARIN 30MG/0.3ML SYR SUBCUT SCH ×2 (08:47→21:31)
[2022-02-01] MEDS: CARVEDILOL 12.5MG TABLET PO SCH ×2 (08:47→21:00)
[2022-02-01] MEDS: ASMANEX 100 MCG ORI SCH ×2 (08:48→16:38)
[2022-02-01] MEDS: POLYETHYLENE GLYCOL 3350 (17GM) 1 DOSE PACK PO SCH (08:48)
[2022-02-01] MEDS: LACTULOSE 20G/30ML UDC PO SCH (08:48)
[2022-02-01] MEDS: SACUBITRIL/VALSARTAN 49MG/51MG TABLET PO SCH ×2 (08:49→16:44)
[2022-02-01] MEDS: INSULIN LISPRO 100 UNITS/ML SUBCUT SCH ×4 (09:00→20:58)
[2022-02-01] MEDS: NAPROXEN 375MG TABLET PO PRN (09:16)
[2022-02-01] MEDS: COPAXONE 40 MG/ML SUBCUT SCH (16:36)
[2022-02-01 20:00] VITALS: BP 106/66
[2022-02-01] MEDS: ATORVASTATIN CALCIUM 20MG TABLET PO SCH (21:31)
[2022-02-02] MEDS: HYDROCODONE/ACETAMINOPHEN 5/325MG TABLET PO PRN ×2 (05:58→15:17)
[2022-02-02] MEDS: GABAPENTIN 300MG CAPSULE PO SCH ×3 (05:58→19:08)
[2022-02-02] MEDS: BACLOFEN 10MG TABLET PO SCH ×3 (05:59→19:08)
[2022-02-02] MEDS: BLOOD SUGAR DIAGNOSTIC STRIP TEST SCH ×4 (06:02→21:09)
[2022-02-02] MEDS: FUROSEMIDE 40MG TABLET PO SCH ×2 (06:04→17:25)
[2022-02-02 06:37] LABS: BASOPHILS % 0.7 % (0.0-2.0); EOSINOPHILS % 4.5 % (0.0-5.0); HEMATOCRIT. 23.7 % (36.0-48.0); HEMOGLOBIN. 7.7 g/dL (12.0-16.0); LYMPHOCYTES % 27.7 % (20.0-50.0); MEAN CORPUSCULAR HEMOGLOBIN 26.9 pg (28.0-32.0); MEAN CORPUSCULAR VOLUME 82.4 fL (81.0-99.0); MEAN PLATELET VOLUME 8.5 fl (7.4-10.4); MONOCYTES % 10.4 % (2.0-8.0); NEUTROPHILS % 56.7 % (40.0-76.0); PLATELET 299 x1000/uL (130-400); RED BLOOD CELL COUNT 2.87 mill/uL (4.2-5.4)
[2022-02-02 08:05] VITALS: BP 95/51
[2022-02-02] MEDS: POLYETHYLENE GLYCOL 3350 (17GM) 1 DOSE PACK PO SCH (09:00)
[2022-02-02] MEDS: LACTULOSE 20G/30ML UDC PO SCH (09:00)
[2022-02-02] MEDS: INSULIN LISPRO 100 UNITS/ML SUBCUT SCH ×4 (09:00→21:00)
[2022-02-02] MEDS: SACUBITRIL/VALSARTAN 49MG/51MG TABLET PO SCH ×2 (09:00→17:25)
[2022-02-02] MEDS: DOCUSATE SODIUM 100MG CAPSULE PO SCH ×2 (09:00→17:24)
[2022-02-02] MEDS: CARVEDILOL 12.5MG TABLET PO SCH ×2 (09:00→21:44)
[2022-02-02] MEDS: ENOXAPARIN 30MG/0.3ML SYR SUBCUT SCH (09:16)
[2022-02-02] MEDS: METFORMIN HCL 500MG TABLET PO SCH ×2 (09:16→17:25)
[2022-02-02] MEDS: ASPIRIN 81MG EC TABLET PO SCH (09:17)
[2022-02-02] MEDS: LORATADINE 10MG TABLET PO SCH (09:17)
[2022-02-02] MEDS: ASCORBIC ACID 500 MG TABLET PO SCH (09:17)
[2022-02-02] MEDS: ASMANEX 100 MCG ORI SCH ×2 (09:17→19:09)
[2022-02-02] MEDS: FERROUS SULFATE 325MG TABLET PO SCH (09:17)
[2022-02-02] MEDS: MIDODRINE HCL 5MG TABLET PO SCH ×3 (09:17→17:25)
[2022-02-02] MEDS ORDERED: NALOXONE HCL 0.4MG/ML VIAL IV PRN (10:45)
[2022-02-02] MEDS: ONDANSETRON 4MG ODT PO PRN (12:36)
[2022-02-02] MEDS: NAPROXEN 375MG TABLET PO PRN (19:08)
[2022-02-02 19:53] VITALS: BP 121/51
[2022-02-02] MEDS: ATORVASTATIN CALCIUM 20MG TABLET PO SCH (21:44)
[2022-02-03] MEDS: BACLOFEN 10MG TABLET PO SCH ×5 (01:32→23:29)
[2022-02-03] MEDS: HYDROCODONE/ACETAMINOPHEN 5/325MG TABLET PO PRN (01:33)
[2022-02-03] MEDS: GABAPENTIN 300MG CAPSULE PO SCH ×5 (01:33→23:29)
[2022-02-03] MEDS: ONDANSETRON 4MG ODT PO PRN (06:03)
[2022-02-03] MEDS: BLOOD SUGAR DIAGNOSTIC STRIP TEST SCH ×4 (06:04→21:46)
[2022-02-03] MEDS: INSULIN LISPRO 100 UNITS/ML SUBCUT SCH ×4 (06:05→21:49)
[2022-02-03 06:34] LABS: BASOPHILS % 0.8 % (0.0-2.0); EOSINOPHILS % 4.1 % (0.0-5.0); HEMATOCRIT. 22.3 % (36.0-48.0); HEMOGLOBIN. 7.4 g/dL (12.0-16.0); LYMPHOCYTES % 29.6 % (20.0-50.0); MEAN CORPUSCULAR HEMOGLOBIN 26.9 pg (28.0-32.0); MEAN CORPUSCULAR VOLUME 81.4 fL (81.0-99.0); MEAN PLATELET VOLUME 8.5 fl (7.4-10.4); MONOCYTES % 10.9 % (2.0-8.0); NEUTROPHILS % 54.6 % (40.0-76.0); PLATELET 310 x1000/uL (130-400); RED BLOOD CELL COUNT 2.74 mill/uL (4.2-5.4); RED CELL DISTRIBUTION WIDTH 14.7 % (11.6-14.6)
[2022-02-03 08:21] VITALS: BP 125/51
[2022-02-03 08:35] LABS: CREATINE KINASE 200 IU/L (26-192)
[2022-02-03] MEDS: ASMANEX 100 MCG ORI SCH ×2 (09:00→17:15)
[2022-02-03] MEDS: DOCUSATE SODIUM 100MG CAPSULE PO SCH ×3 (09:00→17:15)
[2022-02-03] MEDS: POLYETHYLENE GLYCOL 3350 (17GM) 1 DOSE PACK PO SCH (09:00)
[2022-02-03] MEDS: LACTULOSE 20G/30ML UDC PO SCH (09:00)
[2022-02-03] MEDS: MIDODRINE HCL 5MG TABLET PO SCH ×3 (09:00→17:00)
[2022-02-03] MEDS: LORATADINE 10MG TABLET PO SCH (09:04)
[2022-02-03] MEDS: FERROUS SULFATE 325MG TABLET PO SCH (09:04)
[2022-02-03] MEDS: SACUBITRIL/VALSARTAN 49MG/51MG TABLET PO SCH ×2 (09:05→17:14)
[2022-02-03] MEDS: CARVEDILOL 12.5MG TABLET PO SCH ×2 (09:05→21:46)
[2022-02-03] MEDS: ASPIRIN 81MG EC TABLET PO SCH (09:05)
[2022-02-03] MEDS: ASCORBIC ACID 500 MG TABLET PO SCH (09:05)
[2022-02-03] MEDS: COPAXONE 40 MG/ML SUBCUT SCH (09:06)
[2022-02-03] MEDS: NAPROXEN 375MG TABLET PO PRN ×2 (12:52→23:29)
[2022-02-03 13:45] LABS: TOTAL IRON BINDING CAPACITY 191 ug/dL (250-450)
[2022-02-03 16:28] LABS: FERRITIN 221 ng/mL (10-291)
[2022-02-03 16:41] LABS: FOLIC ACID (FOLATE) SERUM >20 ng/mL ng/mL (>5.38); VITAMIN B12 SERUM >2000 pg/mL pg/mL (211-911)
[2022-02-03 17:04] LABS: CLARITY URINE CLOUDY (CLEAR); COLOR URINE YELLOW (YELLOW); KETONES URINE NEGATIVE (NEGATIVE); LEUKOCYTE ESTERASE URINE 1+ (NEGATIVE); NITRITE URINE NEGATIVE (NEGATIVE); OCCULT BLOOD URINE TRACE (NEGATIVE); PH URINE 6.5 (4.5-8.0); PROTEIN URINE NEGATIVE (NEGATIVE); SPECIFIC GRAVITY URINE 1.007 (1.005-1.030); UROBILINOGEN URINE 0.2 E.U./dL (0.2-1.0)
[2022-02-03 20:00] VITALS: BP 111/51
[2022-02-03] MEDS: ATORVASTATIN CALCIUM 20MG TABLET PO SCH (21:45)
[2022-02-04] MEDS: BACLOFEN 10MG TABLET PO SCH ×3 (05:43→18:42)
[2022-02-04] MEDS: GABAPENTIN 300MG CAPSULE PO SCH ×3 (05:43→18:42)
[2022-02-04 06:22] LABS: BASOPHILS % 0.6 % (0.0-2.0); EOSINOPHILS % 3.4 % (0.0-5.0); HEMATOCRIT. 25.5 % (36.0-48.0); HEMOGLOBIN. 8.4 g/dL (12.0-16.0); LYMPHOCYTES % 22.2 % (20.0-50.0); MEAN CORPUSCULAR VOLUME 81.8 fL (81.0-99.0); MEAN PLATELET VOLUME 8.6 fl (7.4-10.4); MONOCYTES % 13.4 % (2.0-8.0); NEUTROPHILS % 60.4 % (40.0-76.0); PLATELET 356 x1000/uL (130-400); RED BLOOD CELL COUNT 3.12 mill/uL (4.2-5.4); RED CELL DISTRIBUTION WIDTH 15.2 % (11.6-14.6)
[2022-02-04] MEDS: BLOOD SUGAR DIAGNOSTIC STRIP TEST SCH ×4 (06:26→21:03)
[2022-02-04] MEDS: INSULIN LISPRO 100 UNITS/ML SUBCUT SCH ×4 (06:27→21:00)
[2022-02-04 06:35] LABS: CHLORIDE 102 mEq/L (98-107)
[2022-02-04 06:55] LABS: PROTHROMBIN TIME 11.1 sec (9.6-11.0)
[2022-02-04] MEDS ORDERED: ALBUTEROL (0.083%) 2.5MG/3ML NEB HHN PRN (07:00)
[2022-02-04 08:00] VITALS: BP 103/52
[2022-02-04] MEDS: CARVEDILOL 12.5MG TABLET PO SCH ×2 (09:00→20:52)
[2022-02-04] MEDS: POLYETHYLENE GLYCOL 3350 (17GM) 1 DOSE PACK PO SCH (09:00)
[2022-02-04] MEDS: LACTULOSE 20G/30ML UDC PO SCH (09:00)
[2022-02-04] MEDS: METFORMIN HCL 500MG TABLET PO SCH ×2 (10:05→17:00)
[2022-02-04] MEDS: LORATADINE 10MG TABLET PO SCH (10:05)
[2022-02-04] MEDS: ASPIRIN 81MG EC TABLET PO SCH (10:05)
[2022-02-04] MEDS: FERROUS SULFATE 325MG TABLET PO SCH (10:05)
[2022-02-04] MEDS: DOCUSATE SODIUM 100MG CAPSULE PO SCH ×2 (10:05→17:00)
[2022-02-04] MEDS: MIDODRINE HCL 5MG TABLET PO SCH ×3 (10:06→17:00)
[2022-02-04] MEDS: ASMANEX 100 MCG ORI SCH ×2 (10:07→17:00)
[2022-02-04] MEDS: SACUBITRIL/VALSARTAN 49MG/51MG TABLET PO SCH ×2 (10:08→17:00)
[2022-02-04] MEDS: ACETAMINOPHEN 325MG TABLET PO PRN ×2 (13:32→18:43)
[2022-02-04] MEDS: ASCORBIC ACID 500 MG TABLET PO SCH (13:32)
[2022-02-04 20:42] VITALS: BP 116/57
[2022-02-04] MEDS: ATORVASTATIN CALCIUM 20MG TABLET PO SCH (20:52)
[2022-02-04] MEDS: NAPROXEN 375MG TABLET PO PRN (20:57)
[2022-02-05] MEDS: BACLOFEN 10MG TABLET PO SCH ×4 (00:36→18:10)
[2022-02-05] MEDS: GABAPENTIN 300MG CAPSULE PO SCH ×4 (00:36→18:10)
[2022-02-05 05:51] LABS: BASOPHILS % 0.7 % (0.0-2.0); HEMATOCRIT. 25.8 % (36.0-48.0); HEMOGLOBIN. 8.4 g/dL (12.0-16.0); LYMPHOCYTES % 31.5 % (20.0-50.0); MEAN CORPUSCULAR HEMOGLOBIN 26.8 pg (28.0-32.0); MEAN CORPUSCULAR VOLUME 82.3 fL (81.0-99.0); MEAN PLATELET VOLUME 8.1 fl (7.4-10.4); MONOCYTES % 12.7 % (2.0-8.0); NEUTROPHILS % 50.1 % (40.0-76.0); PLATELET 345 x1000/uL (130-400); RED BLOOD CELL COUNT 3.13 mill/uL (4.2-5.4); RED CELL DISTRIBUTION WIDTH 15.2 % (11.6-14.6)
[2022-02-05 06:08] LABS: CHLORIDE 104 mEq/L (98-107)
[2022-02-05] MEDS: NAPROXEN 375MG TABLET PO PRN (06:20)
[2022-02-05] MEDS: BLOOD SUGAR DIAGNOSTIC STRIP TEST SCH ×4 (06:27→21:35)
[2022-02-05] MEDS: INSULIN LISPRO 100 UNITS/ML SUBCUT SCH ×4 (06:28→21:00)
[2022-02-05 08:00] VITALS: BP 117/55
[2022-02-05] MEDS: LACTULOSE 20G/30ML UDC PO SCH (09:00)
[2022-02-05] MEDS: POLYETHYLENE GLYCOL 3350 (17GM) 1 DOSE PACK PO SCH (09:00)
[2022-02-05] MEDS: SACUBITRIL/VALSARTAN 49MG/51MG TABLET PO SCH ×2 (09:27→18:03)
[2022-02-05] MEDS: ASMANEX 100 MCG ORI SCH ×2 (09:27→18:04)
[2022-02-05] MEDS: ASCORBIC ACID 500 MG TABLET PO SCH (09:28)
[2022-02-05] MEDS: FERROUS SULFATE 325MG TABLET PO SCH (09:28)
[2022-02-05] MEDS: METFORMIN HCL 500MG TABLET PO SCH ×2 (09:28→18:03)
[2022-02-05] MEDS: DOCUSATE SODIUM 100MG CAPSULE PO SCH ×2 (09:28→17:00)
[2022-02-05] MEDS: MIDODRINE HCL 5MG TABLET PO SCH ×3 (09:28→18:03)
[2022-02-05] MEDS: LORATADINE 10MG TABLET PO SCH (09:28)
[2022-02-05] MEDS: CARVEDILOL 12.5MG TABLET PO SCH ×2 (09:28→21:30)
[2022-02-05] MEDS: ASPIRIN 81MG EC TABLET PO SCH (09:29)
[2022-02-05] MEDS: TRAMADOL 50MG TABLET PO PRN ×2 (13:02→18:10)
[2022-02-05 20:00] VITALS: BP 128/62
[2022-02-05] MEDS: ATORVASTATIN CALCIUM 20MG TABLET PO SCH (21:29)
[2022-02-06] MEDS: BACLOFEN 10MG TABLET PO SCH ×4 (00:38→17:48)
[2022-02-06] MEDS: GABAPENTIN 300MG CAPSULE PO SCH ×4 (00:38→17:49)
[2022-02-06] MEDS: TRAMADOL 50MG TABLET PO PRN ×4 (00:58→17:49)
[2022-02-06] MEDS: BLOOD SUGAR DIAGNOSTIC STRIP TEST SCH ×3 (06:34→21:00)
[2022-02-06 08:00] VITALS: BP 128/58
[2022-02-06] MEDS: COPAXONE 40 MG/ML SUBCUT SCH (09:00)
[2022-02-06] MEDS: LACTULOSE 20G/30ML UDC PO SCH (09:00)
[2022-02-06] MEDS: INSULIN LISPRO 100 UNITS/ML SUBCUT SCH ×3 (09:00→21:00)
[2022-02-06] MEDS: SACUBITRIL/VALSARTAN 49MG/51MG TABLET PO SCH ×2 (09:00→17:49)
[2022-02-06] MEDS: POLYETHYLENE GLYCOL 3350 (17GM) 1 DOSE PACK PO SCH (09:00)
[2022-02-06] MEDS: DOCUSATE SODIUM 100MG CAPSULE PO SCH ×2 (09:00→17:49)
[2022-02-06] MEDS: ASMANEX 100 MCG ORI SCH ×2 (09:00→17:00)
[2022-02-06 09:13] LABS: BASOPHILS % 0.8 % (0.0-2.0); EOSINOPHILS % 5.6 % (0.0-5.0); HEMATOCRIT. 25.9 % (36.0-48.0); HEMOGLOBIN. 8.2 g/dL (12.0-16.0); LYMPHOCYTES % 32.5 % (20.0-50.0); MEAN PLATELET VOLUME 8.8 fl (7.4-10.4); MONOCYTES % 10.9 % (2.0-8.0); NEUTROPHILS % 50.2 % (40.0-76.0); PLATELET 369 x1000/uL (130-400); RED BLOOD CELL COUNT 3.04 mill/uL (4.2-5.4); RED CELL DISTRIBUTION WIDTH 15.6 % (11.6-14.6)
[2022-02-06 09:14] LABS: CHLORIDE 103 mEq/L (98-107)
[2022-02-06] MEDS: MIDODRINE HCL 5MG TABLET PO SCH ×3 (10:07→17:50)
[2022-02-06] MEDS: METFORMIN HCL 500MG TABLET PO SCH ×2 (10:07→17:48)
[2022-02-06] MEDS: LORATADINE 10MG TABLET PO SCH (10:08)
[2022-02-06] MEDS: FERROUS SULFATE 325MG TABLET PO SCH (10:08)
[2022-02-06] MEDS: CARVEDILOL 12.5MG TABLET PO SCH ×2 (10:08→21:22)
[2022-02-06] MEDS: ASCORBIC ACID 500 MG TABLET PO SCH (10:08)
[2022-02-06] MEDS: ASPIRIN 81MG EC TABLET PO SCH (10:14)
[2022-02-06 20:00] VITALS: BP 127/99
[2022-02-06] MEDS: ATORVASTATIN CALCIUM 20MG TABLET PO SCH (21:23)
[2022-02-07] MEDS: BACLOFEN 10MG TABLET PO SCH ×3 (00:13→13:34)
[2022-02-07] MEDS: GABAPENTIN 300MG CAPSULE PO SCH ×3 (00:14→13:35)
[2022-02-07] MEDS: TRAMADOL 50MG TABLET PO PRN ×3 (00:22→13:35)
[2022-02-07 06:30] LABS: BASOPHILS % 0.8 % (0.0-2.0); EOSINOPHILS % 4.4 % (0.0-5.0); HEMATOCRIT. 23.5 % (36.0-48.0); HEMOGLOBIN. 7.8 g/dL (12.0-16.0); LYMPHOCYTES % 29.8 % (20.0-50.0); MEAN CORPUSCULAR HEMOGLOBIN 27.4 pg (28.0-32.0); MEAN CORPUSCULAR VOLUME 82.4 fL (81.0-99.0); MEAN PLATELET VOLUME 8.7 fl (7.4-10.4); PLATELET 317 x1000/uL (130-400); RED BLOOD CELL COUNT 2.86 mill/uL (4.2-5.4); RED CELL DISTRIBUTION WIDTH 15.2 % (11.6-14.6)
[2022-02-07 06:43] LABS: CHLORIDE 105 mEq/L (98-107)
[2022-02-07] MEDS: POLYETHYLENE GLYCOL 3350 (17GM) 1 DOSE PACK PO SCH (09:00)
[2022-02-07] MEDS: ASMANEX 100 MCG ORI SCH (09:00)
[2022-02-07] MEDS: DOCUSATE SODIUM 100MG CAPSULE PO SCH (09:00)
[2022-02-07] MEDS: INSULIN LISPRO 100 UNITS/ML SUBCUT SCH (09:00)
[2022-02-07] MEDS ORDERED: MIDO5TAB4 PO (09:35)
[2022-02-07] MEDS ORDERED: ASCO500T20 PO (09:36)
[2022-02-07] MEDS ORDERED: METF-414 PO (09:36)
[2022-02-07] MEDS ORDERED: CLAR10 PO (09:36)
[2022-02-07] MEDS ORDERED: GABA-532 PO (09:36)
[2022-02-07] MEDS: ASPIRIN 81MG EC TABLET PO SCH (09:39)
[2022-02-07] MEDS: METFORMIN HCL 500MG TABLET PO SCH (09:40)
[2022-02-07] MEDS: SACUBITRIL/VALSARTAN 49MG/51MG TABLET PO SCH (09:40)
[2022-02-07] MEDS: LORATADINE 10MG TABLET PO SCH (09:40)
[2022-02-07] MEDS: FERROUS SULFATE 325MG TABLET PO SCH (09:40)
[2022-02-07] MEDS: ASCORBIC ACID 500 MG TABLET PO SCH (09:40)
[2022-02-07] MEDS: MIDODRINE HCL 5MG TABLET PO SCH ×2 (09:43→13:31)
[2022-02-07] MEDS: CARVEDILOL 12.5MG TABLET PO SCH (09:44)
[2022-02-07 15:42] VITALS: BP 106/50
== END 2022-02-07 16:05 | DRG 58 ==
PROVIDERS: ADMIT Physical Medicine & Rehabilitation Spinal Cord Injury Medicine; ATTEND Internal Medicine
DX: G35 Multiple sclerosis (principal); A41.01 Sepsis due to Methicillin susceptible Staphylococcus aureus; I50.22 Chronic systolic (congestive) heart failure; N17.9 Acute kidney failure, unspecified; D50.9 Iron deficiency anemia, unspecified; G82.20 Paraplegia, unspecified; E11.9 Type 2 diabetes mellitus without complications; E78.00 Pure hypercholesterolemia, unspecified; M17.0 Bilateral primary osteoarthritis of knee; I11.0 Hypertensive heart disease with heart failure; G89.29 Other chronic pain; D36.10 Benign neoplasm of peripheral nerves and autonomic nervous system, unspecified; E04.2 Nontoxic multinodular goiter; J45.909 Unspecified asthma, uncomplicated; Z60.2 Problems related to living alone; M48.02 Spinal stenosis, cervical region; R03.1 Nonspecific low blood-pressure reading; N30.90 Cystitis, unspecified without hematuria; R13.10 Dysphagia, unspecified; Z82.49 Family history of ischemic heart disease and other diseases of the circulatory system; Z79.82 Long term (current) use of aspirin; Z88.0 Allergy status to penicillin; Z79.899 Other long term (current) drug therapy; R53.81 Other malaise; K64.8 Other hemorrhoids; R20.0 Anesthesia of skin; M79.609 Pain in unspecified limb
CPT/HCPCS: 36415; 70551; 71046; 72141; 74230; 76536; 76770; 80048; 80053; 80202; 81003; 82270; 82306; 82378; 82550; 82607; 82728; 82746; 82962; 83540; 83550; 84134; 84145; 84439; 84443; 84481; 85025; 85044; 87077; 87186; 87426; 92610; 92611; 93970; 97110; 97112; 97162; 97166; 97530; 97535; 97542; C1893; J1650; J1815; J3370; J7060; J7512; Q0162

== ENCOUNTER 2022-05-26 16:53 | Inpatient (IN) | payer MEDICARE, OTHER ==
[~2022-05-26] VITALS: Ht 160 cm; Wt 88.5 kg
[~2022-05-26 16:53] MED LIST changes: +ASCO500T20 PO; +CLAR10 PO; -FURO40TA5 PO; +GABA-532 PO; +METF-414 PO; -METF-416 PO; +MIDO5TAB4 PO; -MOME0.13 INH; +MOME110A INH; -SACU1TAB7 PO
[2022-05-26] MEDS ORDERED: MORPHINE SULFATE 4 MG/ML CPJ (NOT FOR IM USE) IV ONE (17:30)
[2022-05-26 17:57] LABS: CHLORIDE 102 mEq/L (98-107)
[2022-05-26 17:59] LABS: PROTHROMBIN TIME 10.8 sec (9.6-11.0)
[2022-05-26 19:37] LABS: BASOPHILS % 1.1 % (0.0-2.0); EOSINOPHILS % 6.8 % (0.0-5.0); HEMATOCRIT. 30.7 % (36.0-48.0); HEMOGLOBIN. 9.5 g/dL (12.0-16.0); LYMPHOCYTES % 26.2 % (20.0-50.0); MEAN CORPUSCULAR HEMOGLOBIN 24.1 pg (28.0-32.0); MEAN CORPUSCULAR VOLUME 77.5 fL (81.0-99.0); MEAN PLATELET VOLUME 9.8 fl (7.4-10.4); MONOCYTES % 9.5 % (2.0-8.0); NEUTROPHILS % 56.4 % (40.0-76.0); PLATELET 256 x1000/uL (130-400); RED BLOOD CELL COUNT 3.96 mill/uL (4.2-5.4); RED CELL DISTRIBUTION WIDTH 18.3 % (11.6-14.6)
[2022-05-26 19:38] LABS: CLARITY URINE CLOUDY (CLEAR); COLOR URINE YELLOW (YELLOW); KETONES URINE NEGATIVE (NEGATIVE); LEUKOCYTE ESTERASE URINE TRACE (NEGATIVE); NITRITE URINE NEGATIVE (NEGATIVE); OCCULT BLOOD URINE NEGATIVE (NEGATIVE); PROTEIN URINE TRACE (NEGATIVE); SPECIFIC GRAVITY URINE 1.021 (1.005-1.030); UROBILINOGEN URINE 0.2 E.U./dL (0.2-1.0)
[2022-05-26] MEDS ORDERED: VANCOMYCIN 1G PREMIX 200 ML IV NR (20:00)
[2022-05-26] MEDS ORDERED: SODIUM CHLORIDE 0.9% 1000ML BAG (SEPSIS BOLUS) IV NR (20:00)
[2022-05-26] MEDS ORDERED: LIDOCAINE HCL 1% 20ML VIAL (Pyxis) INJ INFIL NR (20:19)
[2022-05-26] MEDS ORDERED: LIDOCAINE HCL 1% 10 MG/ML 10ML VIAL IJ NR (20:45)
[2022-05-26] MEDS ORDERED: CEFEPIME 1,000 MG in DEXTROSE 5% WATER 50 ML IV SCH (21:00)
[2022-05-27] VITALS: BP 148/67
[2022-05-27 03:19] VITALS: BP 148/67
[2022-05-27] MEDS ORDERED: MORPHINE SULFATE 4 MG/ML CPJ (NOT FOR IM USE) IV PRN (06:00)
[2022-05-27] MEDS ORDERED: METFORMIN HCL 500MG TABLET PO SCH (07:50)
[2022-05-27 08:00] VITALS: BP 118/60
[2022-05-27] MEDS ORDERED: BISACODYL 10MG SUPP PR PRN (08:00)
[2022-05-27] MEDS ORDERED: NALOXONE HCL 0.4MG/ML VIAL IV PRN (08:15)
[2022-05-27] MEDS: POLYETHYLENE GLYCOL 3350 (17GM) 1 DOSE PACK PO SCH (09:00)
[2022-05-27] MEDS ORDERED: CHOLECALCIFEROL (D3) 1000 UNIT TABLET PO SCH (09:00)
[2022-05-27] MEDS: CARVEDILOL 12.5MG TABLET PO SCH ×2 (09:00→21:54)
[2022-05-27] MEDS: MIDODRINE HCL 5MG TABLET PO SCH ×3 (09:00→17:00)
[2022-05-27] MEDS: DOCUSATE SODIUM 100MG CAPSULE PO SCH ×2 (09:00→18:26)
[2022-05-27] MEDS: ASPIRIN 81MG TABLET PO SCH (09:30)
[2022-05-27] MEDS: FUROSEMIDE 20MG TABLET PO SCH ×2 (09:31→21:54)
[2022-05-27] MEDS: FERROUS SULFATE 325MG TABLET PO SCH (09:31)
[2022-05-27] MEDS: ASCORBIC ACID 500 MG TABLET PO SCH (09:32)
[2022-05-27] MEDS: LORATADINE 10MG TABLET PO SCH (09:47)
[2022-05-27] MEDS: MORPHINE SULFATE 4 MG/ML CPJ (NOT FOR IM USE) IV PRN (09:47)
[2022-05-27] MEDS: FOLIC ACID 1MG TABLET PO SCH (09:47)
[2022-05-27] MEDS: CYANOCOBALAMIN 1000MCG/ML VIAL IM SCH (09:47)
[2022-05-27 12:00] VITALS: BP 136/77
[2022-05-27] MEDS: BACLOFEN 10MG TABLET PO SCH ×3 (12:31→23:49)
[2022-05-27] MEDS: GABAPENTIN 300MG CAPSULE PO SCH ×3 (12:31→23:49)
[2022-05-27] MEDS ORDERED: DEXTROSE 50% WATER 50ML SYRINGE IV PRN (15:45)
[2022-05-27 16:00] VITALS: BP 135/69
[2022-05-27] MEDS: BLOOD SUGAR DIAGNOSTIC STRIP TEST SCH ×2 (17:20→21:53)
[2022-05-27] MEDS: INSULIN LISPRO 100 UNITS/ML SUBCUT SCH ×2 (17:50→21:00)
[2022-05-27 18:30] LABS: BASOPHILS % 0.9 % (0.0-2.0); EOSINOPHILS % 2.5 % (0.0-5.0); HEMATOCRIT. 30.7 % (36.0-48.0); HEMOGLOBIN. 9.5 g/dL (12.0-16.0); LYMPHOCYTES % 19.8 % (20.0-50.0); MEAN CORPUSCULAR HEMOGLOBIN 23.6 pg (28.0-32.0); MEAN CORPUSCULAR VOLUME 75.6 fL (81.0-99.0); MEAN PLATELET VOLUME 9.4 fl (7.4-10.4); MONOCYTES % 7.2 % (2.0-8.0); NEUTROPHILS % 69.6 % (40.0-76.0); PLATELET 265 x1000/uL (130-400); RED BLOOD CELL COUNT 4.05 mill/uL (4.2-5.4); RED CELL DISTRIBUTION WIDTH 18.3 % (11.6-14.6)
[2022-05-27 18:46] LABS: CHLORIDE 103 mEq/L (98-107)
[2022-05-27 20:00] VITALS: BP 131/68
[2022-05-27] MEDS: ATORVASTATIN CALCIUM 20MG TABLET PO SCH (21:54)
[2022-05-27] MEDS: TRAMADOL 50MG TABLET PO PRN (22:04)
[2022-05-28] VITALS: BP 107/47
[2022-05-28 04:00] VITALS: BP 108/61
[2022-05-28] MEDS: BACLOFEN 10MG TABLET PO SCH ×3 (05:44→18:29)
[2022-05-28] MEDS: GABAPENTIN 300MG CAPSULE PO SCH ×3 (05:44→18:29)
[2022-05-28] MEDS: TRAMADOL 50MG TABLET PO PRN (06:11)
[2022-05-28] MEDS: INSULIN LISPRO 100 UNITS/ML SUBCUT SCH ×4 (07:50→21:00)
[2022-05-28] MEDS: BLOOD SUGAR DIAGNOSTIC STRIP TEST SCH ×4 (07:54→21:40)
[2022-05-28 08:00] VITALS: BP 120/64
[2022-05-28 08:16] LABS: HEMOGLOBIN. 9.1 g/dL (12.0-16.0); MEAN CORPUSCULAR HEMOGLOBIN 23.7 pg (28.0-32.0); MEAN CORPUSCULAR VOLUME 75.4 fL (81.0-99.0); PLATELET 241 x1000/uL (130-400); RED BLOOD CELL COUNT 3.84 mill/uL (4.2-5.4); RED CELL DISTRIBUTION WIDTH 18.6 % (11.6-14.6)
[2022-05-28 08:51] LABS: CHLORIDE 104 mEq/L (98-107)
[2022-05-28] MEDS: POLYETHYLENE GLYCOL 3350 (17GM) 1 DOSE PACK PO SCH (09:00)
[2022-05-28] MEDS: DOCUSATE SODIUM 100MG CAPSULE PO SCH ×2 (09:00→17:00)
[2022-05-28] MEDS: ASPIRIN 81MG TABLET PO SCH (11:06)
[2022-05-28] MEDS: CARVEDILOL 12.5MG TABLET PO SCH ×2 (11:08→21:49)
[2022-05-28] MEDS: FUROSEMIDE 20MG TABLET PO SCH (11:09)
[2022-05-28] MEDS: FERROUS SULFATE 325MG TABLET PO SCH (11:09)
[2022-05-28] MEDS: MIDODRINE HCL 5MG TABLET PO SCH ×3 (11:09→17:00)
[2022-05-28] MEDS: FOLIC ACID 1MG TABLET PO SCH (11:09)
[2022-05-28] MEDS: LORATADINE 10MG TABLET PO SCH (11:10)
[2022-05-28] MEDS: CYANOCOBALAMIN 1000MCG/ML VIAL IM SCH (11:10)
[2022-05-28] MEDS: ASCORBIC ACID 500 MG TABLET PO SCH (11:11)
[2022-05-28 11:13] LABS: PLATELET ESTIMATE NORMAL
[2022-05-28 12:00] VITALS: BP 137/65
[2022-05-28] MEDS ORDERED: POTASSIUM CHLORIDE 20MEQ TABLET SR PO NR (12:45)
[2022-05-28] MEDS: MORPHINE SULFATE 4 MG/ML CPJ (NOT FOR IM USE) IV PRN ×2 (13:38→21:50)
[2022-05-28 16:00] VITALS: BP 122/68
[2022-05-28 20:00] VITALS: BP 122/58
[2022-05-28] MEDS: ATORVASTATIN CALCIUM 20MG TABLET PO SCH (21:49)
[2022-05-28] MEDS: FUROSEMIDE 20MG/2ML VIAL IVP SCH (21:49)
[2022-05-29] VITALS: BP 102/57
[2022-05-29] MEDS: BACLOFEN 10MG TABLET PO SCH ×4 (00:05→17:24)
[2022-05-29] MEDS: GABAPENTIN 300MG CAPSULE PO SCH ×4 (00:05→17:24)
[2022-05-29 04:00] VITALS: BP 104/54
[2022-05-29] MEDS ORDERED: ASCORBIC ACID 500 MG TABLET PO SCH (06:00)
[2022-05-29] MEDS ORDERED: FERROUS SULFATE 325MG TABLET PO SCH (06:00)
[2022-05-29] MEDS: MORPHINE SULFATE 4 MG/ML CPJ (NOT FOR IM USE) IV PRN ×2 (06:07→12:34)
[2022-05-29] MEDS: FUROSEMIDE 20MG/2ML VIAL IVP SCH ×2 (06:15→17:25)
[2022-05-29 06:57] LABS: BASOPHILS % 0.9 % (0.0-2.0); EOSINOPHILS % 5.6 % (0.0-5.0); HEMATOCRIT. 28.2 % (36.0-48.0); LYMPHOCYTES % 32.2 % (20.0-50.0); MEAN CORPUSCULAR HEMOGLOBIN 24.2 pg (28.0-32.0); MEAN CORPUSCULAR VOLUME 75.9 fL (81.0-99.0); MEAN PLATELET VOLUME 9.4 fl (7.4-10.4); MONOCYTES % 9.4 % (2.0-8.0); NEUTROPHILS % 51.9 % (40.0-76.0); PLATELET 238 x1000/uL (130-400); RED BLOOD CELL COUNT 3.72 mill/uL (4.2-5.4); RED CELL DISTRIBUTION WIDTH 18.1 % (11.6-14.6)
[2022-05-29 07:29] LABS: CHLORIDE 104 mEq/L (98-107)
[2022-05-29] MEDS: INSULIN LISPRO 100 UNITS/ML SUBCUT SCH ×3 (07:50→17:42)
[2022-05-29 08:00] VITALS: BP 87/51
[2022-05-29] MEDS: BLOOD SUGAR DIAGNOSTIC STRIP TEST SCH ×3 (08:03→17:41)
[2022-05-29] MEDS: POLYETHYLENE GLYCOL 3350 (17GM) 1 DOSE PACK PO SCH (09:00)
[2022-05-29] MEDS: CARVEDILOL 12.5MG TABLET PO SCH (09:00)
[2022-05-29] MEDS: CYANOCOBALAMIN 1000MCG/ML VIAL IM SCH (09:19)
[2022-05-29] MEDS: ASPIRIN 81MG TABLET PO SCH (09:19)
[2022-05-29] MEDS: METFORMIN HCL 500MG TABLET PO SCH ×2 (09:19→17:41)
[2022-05-29] MEDS: LORATADINE 10MG TABLET PO SCH (09:20)
[2022-05-29] MEDS: DOCUSATE SODIUM 100MG CAPSULE PO SCH ×2 (09:20→17:24)
[2022-05-29] MEDS: FOLIC ACID 1MG TABLET PO SCH (09:21)
[2022-05-29] MEDS: MIDODRINE HCL 5MG TABLET PO SCH ×3 (09:25→17:00)
[2022-05-29 12:00] VITALS: BP 94/52
[2022-05-29] MEDS ORDERED: VANCOMYCIN 750MG PMX (XELLIA) 150 ML IV SCH (15:00)
[2022-05-29] MEDS ORDERED: LEVOFLOXACIN 500MG PREMIX 100 ML IV SCH (15:00)
[2022-05-29 16:00] VITALS: BP 122/55
[2022-05-29 16:40] VITALS: BP 120/62
[2022-05-29] MEDS ORDERED: LEVOFLOXACIN 500MG TABLET PO SCH (18:15)
[2022-05-29] MEDS ORDERED: SULFAMETHOXAZOLE/TRIMETHOPRIM 800/160MG TABLET PO SCH (21:00)
== END 2022-05-29 18:30 | DRG 564 ==
LOC: ER 16:53 → 6EST 20:29 → EDBEDREQ 21:11 → EDBEDREQTM 21:11 → ENRESERV 22:35
PROVIDERS: ADMIT Internal Medicine; ATTEND Internal Medicine
PROC: 02HV33Z Insertion of Infusion Device into Superior Vena Cava, Percutaneous Approach (ICD-10-PCS; principal; 2022-05-28)
PROC: B548ZZA Ultrasonography of Superior Vena Cava, Guidance (ICD-10-PCS; 2022-05-28)
DX: M25.461 Effusion, right knee (principal); E43 Unspecified severe protein-calorie malnutrition; L03.115 Cellulitis of right lower limb; I11.0 Hypertensive heart disease with heart failure; I50.9 Heart failure, unspecified; E11.9 Type 2 diabetes mellitus without complications; G35 Multiple sclerosis; G89.29 Other chronic pain; Z20.822 Contact with and (suspected) exposure to COVID-19; E66.9 Obesity, unspecified; Z68.34 Body mass index [BMI] 34.0-34.9, adult; Z96.651 Presence of right artificial knee joint; Z79.84 Long term (current) use of oral hypoglycemic drugs; Z79.899 Other long term (current) drug therapy; Z88.6 Allergy status to analgesic agent; Z88.0 Allergy status to penicillin; Z83.3 Family history of diabetes mellitus; Z82.49 Family history of ischemic heart disease and other diseases of the circulatory system
CPT/HCPCS: 36415; 36573; 71045; 73562; 80048; 80053; 81003; 82962; 83036; 83605; 83880; 84145; 84484; 85025; 85651; 87426; 93005; 99285; C1725; C1893; J0692; J1940; J1956; J2270; J3370; J3420; J3490; J7060

== ENCOUNTER 2022-10-04 15:22 | Inpatient (IN) | payer MEDICARE, MEDICAID ==
[~2022-10-04] VITALS: Ht 162.6 cm; Wt 88.9 kg
[2022-10-04] MEDS ORDERED: VANCOMYCIN 1.25GM PMX (XELLIA) 250 ML IV ONE (17:15)
[2022-10-04 18:11] LABS: BASOPHILS % 0.8 % (0.0-2.0); EOSINOPHILS % 9.8 % (0.0-5.0); HEMATOCRIT. 34.7 % (36.0-48.0); HEMOGLOBIN. 11.2 g/dL (12.0-16.0); LYMPHOCYTES % 20.6 % (20.0-50.0); MEAN CORPUSCULAR HEMOGLOBIN 27.7 pg (28.0-32.0); MEAN CORPUSCULAR VOLUME 85.7 fL (81.0-99.0); MEAN PLATELET VOLUME 9.8 fl (7.4-10.4); MONOCYTES % 6.9 % (2.0-8.0); NEUTROPHILS % 61.9 % (40.0-76.0); PLATELET 271 x1000/uL (130-400); RED BLOOD CELL COUNT 4.06 mill/uL (4.2-5.4); RED CELL DISTRIBUTION WIDTH 14.8 % (11.6-14.6)
[2022-10-04 18:12] LABS: CHLORIDE 106 mEq/L (98-107); INR 1.1; PROTHROMBIN TIME 11.4 sec (9.6-11.0)
[2022-10-04 18:23] LABS: ETHANOL BLOOD < 10 mg/dL
[2022-10-04] MEDS ORDERED: MORPHINE SULFATE 2 MG/ML CPJ (NOT FOR IM USE) IV NR (22:00)
[2022-10-05 04:13] VITALS: BP 108/65
[2022-10-05] MEDS ORDERED: BISA-81 PO (04:45)
[2022-10-05] MEDS ORDERED: SACU1TAB7 PO (04:45)
[2022-10-05] MEDS ORDERED: GABA-532 PO (04:45)
[2022-10-05] MEDS ORDERED: CHOL400D7 PO (04:45)
[2022-10-05] MEDS ORDERED: FOLI-43 PO (04:45)
[2022-10-05] MEDS ORDERED: INSU100V3 SUBCUT (04:52)
[2022-10-05] MEDS ORDERED: FURO20TA4 PO (04:52)
[2022-10-05] MEDS ORDERED: MORP15TA67 PO (04:52)
[2022-10-05] MEDS ORDERED: MELA5TAB21 PO (04:52)
[2022-10-05] MEDS ORDERED: LEVA15HF6 IH (04:52)
[2022-10-05] MEDS ORDERED: LORA10TA7 PO (04:52)
[2022-10-05] MEDS ORDERED: DOCUSATE SODIUM SUGAR FREE 100MG/10ML UDC PO PRN (05:15)
[2022-10-05] MEDS ORDERED: PIPERACILLIN/TAZOBACTAM 3.375 G in DEXTROSE 5% WATER 50 ML IV SCH (06:00)
[2022-10-05] MEDS: VANCOMYCIN 750MG PREMIX 150 ML IV SCH ×3 (06:32→21:24)
[2022-10-05 08:00] VITALS: BP 129/54
[2022-10-05] MEDS: LEVOFLOXACIN 500MG PREMIX 100 ML IV SCH (09:02)
[2022-10-05] MEDS: BACLOFEN 10MG TABLET PO SCH ×3 (09:02→17:01)
[2022-10-05] MEDS: ENOXAPARIN 40MG/0.4ML SYR SUBCUT SCH (09:02)
[2022-10-05] MEDS: FUROSEMIDE 20MG TABLET PO SCH (09:03)
[2022-10-05] MEDS: FOLIC ACID 1MG TABLET PO SCH (09:03)
[2022-10-05] MEDS: FERROUS SULFATE 325MG TABLET PO SCH (09:03)
[2022-10-05] MEDS: ASCORBIC ACID 500 MG TABLET PO SCH (09:03)
[2022-10-05] MEDS: CARVEDILOL 12.5MG TABLET PO SCH ×2 (09:03→17:02)
[2022-10-05] MEDS: ASPIRIN 81MG EC TABLET PO SCH (09:03)
[2022-10-05] MEDS: METFORMIN HCL 500MG TABLET PO SCH ×2 (09:03→17:01)
[2022-10-05] MEDS: LORATADINE 10MG TABLET PO SCH (09:04)
[2022-10-05] MEDS: GABAPENTIN 300MG CAPSULE PO SCH ×4 (09:30→21:24)
[2022-10-05 10:34] LABS: BASOPHILS % 0.7 % (0.0-2.0); EOSINOPHILS % 6.4 % (0.0-5.0); HEMOGLOBIN. 11.4 g/dL (12.0-16.0); LYMPHOCYTES % 15.6 % (20.0-50.0); MEAN CORPUSCULAR HEMOGLOBIN 28.4 pg (28.0-32.0); MEAN CORPUSCULAR VOLUME 87.1 fL (81.0-99.0); MEAN PLATELET VOLUME 10.2 fl (7.4-10.4); MONOCYTES % 6.7 % (2.0-8.0); NEUTROPHILS % 70.6 % (40.0-76.0); PLATELET 267 x1000/uL (130-400); RED BLOOD CELL COUNT 4.02 mill/uL (4.2-5.4); RED CELL DISTRIBUTION WIDTH 14.2 % (11.6-14.6)
[2022-10-05 10:40] LABS: CHLORIDE 102 mEq/L (98-107)
[2022-10-05 10:48] LABS: HDL CHOLESTEROL 48 mg/dL (40-59); LDL CHOLESTEROL 62 mg/dL (5-100)
[2022-10-05 12:00] VITALS: BP 135/60
[2022-10-05] MEDS ORDERED: LACTULOSE 20G/30ML UDC PO NR (12:15)
[2022-10-05] MEDS ORDERED: NALOXONE HCL 0.4MG/ML VIAL IV PRN (12:15)
[2022-10-05 16:00] VITALS: BP 140/63
[2022-10-05 16:58] LABS: HEPATITIS B SURFACE ANTIGEN NEGATIVE
[2022-10-05 20:00] VITALS: BP 99/60
[2022-10-05] MEDS: ATORVASTATIN CALCIUM 20MG TABLET PO SCH (21:24)
[2022-10-05] MEDS: MORPHINE SULFATE 15MG TABLET SR PO SCH (21:25)
[2022-10-06] VITALS: BP 120/61
[2022-10-06 04:00] VITALS: BP 90/43
[2022-10-06] MEDS: VANCOMYCIN 750MG PREMIX 150 ML IV SCH ×3 (05:49→21:55)
[2022-10-06] MEDS ORDERED: IPRATROPIUM/ALBUTEROL 0.5-3(2.5)MG/3ML NEB HHN PRN (07:15)
[2022-10-06 08:00] VITALS: BP 123/45
[2022-10-06] MEDS ORDERED: IPRATROPIUM/ALBUTEROL 0.5-3(2.5)MG/3ML NEB HHN SCH (08:00)
[2022-10-06] MEDS: LEVOFLOXACIN 500MG PREMIX 100 ML IV SCH (08:03)
[2022-10-06] MEDS: ASCORBIC ACID 500 MG TABLET PO SCH (08:04)
[2022-10-06] MEDS: FERROUS SULFATE 325MG TABLET PO SCH (08:04)
[2022-10-06] MEDS: ENOXAPARIN 40MG/0.4ML SYR SUBCUT SCH (08:04)
[2022-10-06] MEDS: FOLIC ACID 1MG TABLET PO SCH (08:06)
[2022-10-06] MEDS: ASPIRIN 81MG EC TABLET PO SCH (08:06)
[2022-10-06] MEDS: LORATADINE 10MG TABLET PO SCH (08:06)
[2022-10-06] MEDS: BACLOFEN 10MG TABLET PO SCH ×3 (08:06→18:03)
[2022-10-06] MEDS: METFORMIN HCL 500MG TABLET PO SCH ×2 (08:06→18:03)
[2022-10-06] MEDS: GABAPENTIN 300MG CAPSULE PO SCH ×4 (08:06→20:47)
[2022-10-06] MEDS: DOCUSATE SODIUM 250MG CAPSULE PO SCH (08:11)
[2022-10-06] MEDS: MORPHINE SULFATE 15MG TABLET SR PO SCH ×2 (08:14→20:48)
[2022-10-06] MEDS ORDERED: ALBUTEROL (0.083%) 2.5MG/3ML NEB HHN PRN ×2 (08:45)
[2022-10-06] MEDS ORDERED: IPRATROPIUM BROMIDE (0.02%) 0.5MG/2.5ML NEB HHN PRN ×2 (08:45)
[2022-10-06] MEDS: FUROSEMIDE 20MG TABLET PO SCH (09:00)
[2022-10-06] MEDS: CARVEDILOL 12.5MG TABLET PO SCH ×2 (09:00→18:04)
[2022-10-06] MEDS ORDERED: ALBUTEROL (0.083%) 2.5MG/3ML NEB HHN SCH (09:00)
[2022-10-06] MEDS ORDERED: IPRATROPIUM BROMIDE (0.02%) 0.5MG/2.5ML NEB HHN SCH (09:00)
[2022-10-06 12:00] VITALS: BP 119/49
[2022-10-06 16:00] VITALS: BP 122/47
[2022-10-06 20:00] VITALS: BP 115/53
[2022-10-06] MEDS: ATORVASTATIN CALCIUM 20MG TABLET PO SCH (20:48)
[2022-10-06] MEDS: IPRATROPIUM BROMIDE (0.02%) 0.5MG/2.5ML NEB HHN SCH ×2 (21:19→23:56)
[2022-10-06] MEDS: ALBUTEROL (0.083%) 2.5MG/3ML NEB HHN SCH ×3 (21:20→23:56)
[2022-10-07] VITALS: BP 135/53
[2022-10-07 04:00] VITALS: BP 132/64
[2022-10-07] MEDS: ALBUTEROL (0.083%) 2.5MG/3ML NEB HHN SCH ×5 (04:05→20:32)
[2022-10-07] MEDS: IPRATROPIUM BROMIDE (0.02%) 0.5MG/2.5ML NEB HHN SCH ×5 (04:05→20:32)
[2022-10-07 04:23] LABS: CHLORIDE 104 mEq/L (98-107)
[2022-10-07 04:30] LABS: VANCOMYCIN TROUGH 29.3 ug/mL (5.0-10.0)
[2022-10-07 04:37] LABS: BASOPHILS % 0.6 % (0.0-2.0); HEMATOCRIT. 33.8 % (36.0-48.0); HEMOGLOBIN. 10.9 g/dL (12.0-16.0); LYMPHOCYTES % 25.8 % (20.0-50.0); MEAN CORPUSCULAR HEMOGLOBIN 27.9 pg (28.0-32.0); MEAN CORPUSCULAR VOLUME 86.6 fL (81.0-99.0); MEAN PLATELET VOLUME 9.9 fl (7.4-10.4); NEUTROPHILS % 57.6 % (40.0-76.0); PLATELET 247 x1000/uL (130-400); RED CELL DISTRIBUTION WIDTH 14.2 % (11.6-14.6)
[2022-10-07 08:00] VITALS: BP 139/66
[2022-10-07] MEDS: DOCUSATE SODIUM 250MG CAPSULE PO SCH (08:21)
[2022-10-07] MEDS: FERROUS SULFATE 325MG TABLET PO SCH (08:21)
[2022-10-07] MEDS: METFORMIN HCL 500MG TABLET PO SCH ×2 (08:21→16:30)
[2022-10-07] MEDS: ASPIRIN 81MG EC TABLET PO SCH (08:21)
[2022-10-07] MEDS: MORPHINE SULFATE 15MG TABLET SR PO SCH ×2 (08:21→22:36)
[2022-10-07] MEDS: CARVEDILOL 12.5MG TABLET PO SCH ×2 (08:22→16:30)
[2022-10-07] MEDS: LORATADINE 10MG TABLET PO SCH (08:22)
[2022-10-07] MEDS: BACLOFEN 10MG TABLET PO SCH ×3 (08:23→16:30)
[2022-10-07] MEDS: ASCORBIC ACID 500 MG TABLET PO SCH (08:25)
[2022-10-07] MEDS: ENOXAPARIN 40MG/0.4ML SYR SUBCUT SCH (08:40)
[2022-10-07] MEDS: FUROSEMIDE 20MG TABLET PO SCH (08:49)
[2022-10-07] MEDS: FOLIC ACID 1MG TABLET PO SCH (08:49)
[2022-10-07] MEDS: GABAPENTIN 300MG CAPSULE PO SCH ×4 (08:49→22:35)
[2022-10-07 12:00] VITALS: BP 109/60
[2022-10-07 16:00] VITALS: BP 130/53
[2022-10-07 18:12] LABS: CREATINE KINASE 44 IU/L (26-192)
[2022-10-07 20:00] VITALS: BP 102/47
[2022-10-07] MEDS: VANCOMYCIN 1G PREMIX 200 ML IV SCH (20:28)
[2022-10-07] MEDS: ATORVASTATIN CALCIUM 20MG TABLET PO SCH (22:35)
[2022-10-08] VITALS: BP 129/63
[2022-10-08 03:53] VITALS: BP 133/61
[2022-10-08] MEDS: ALBUTEROL (0.083%) 2.5MG/3ML NEB HHN SCH ×5 (04:13→20:50)
[2022-10-08] MEDS: IPRATROPIUM BROMIDE (0.02%) 0.5MG/2.5ML NEB HHN SCH ×5 (04:13→20:50)
[2022-10-08] MEDS: METFORMIN HCL 500MG TABLET PO SCH ×2 (07:48→17:10)
[2022-10-08 08:00] VITALS: BP 122/53
[2022-10-08] MEDS: FOLIC ACID 1MG TABLET PO SCH (08:20)
[2022-10-08] MEDS: FUROSEMIDE 20MG TABLET PO SCH (08:20)
[2022-10-08] MEDS: CARVEDILOL 12.5MG TABLET PO SCH ×2 (08:20→17:00)
[2022-10-08] MEDS: LORATADINE 10MG TABLET PO SCH (08:20)
[2022-10-08] MEDS: ASPIRIN 81MG EC TABLET PO SCH (08:21)
[2022-10-08] MEDS: GABAPENTIN 300MG CAPSULE PO SCH ×4 (08:21→22:20)
[2022-10-08] MEDS: BACLOFEN 10MG TABLET PO SCH ×3 (08:21→17:00)
[2022-10-08] MEDS: MORPHINE SULFATE 15MG TABLET SR PO SCH ×2 (08:21→22:21)
[2022-10-08] MEDS: FERROUS SULFATE 325MG TABLET PO SCH (08:21)
[2022-10-08] MEDS: DOCUSATE SODIUM 250MG CAPSULE PO SCH (08:21)
[2022-10-08] MEDS: ENOXAPARIN 40MG/0.4ML SYR SUBCUT SCH (08:22)
[2022-10-08] MEDS: ASCORBIC ACID 500 MG TABLET PO SCH (08:22)
[2022-10-08 08:30] LABS: CLARITY URINE CLEAR (CLEAR); COLOR URINE YELLOW (YELLOW); KETONES URINE NEGATIVE (NEGATIVE); LEUKOCYTE ESTERASE URINE TRACE (NEGATIVE); NITRITE URINE NEGATIVE (NEGATIVE); OCCULT BLOOD URINE NEGATIVE (NEGATIVE); PH URINE 6.5 (4.5-8.0); PROTEIN URINE NEGATIVE (NEGATIVE); SPECIFIC GRAVITY URINE 1.006 (1.005-1.030); UROBILINOGEN URINE 0.2 E.U./dL (0.2-1.0)
[2022-10-08 09:14] LABS: *AMPHETAMINES SCREEN URINE NEGATIVE (NEGATIVE); *BARBITURATES SCREEN URINE NEGATIVE (NEGATIVE); *BENZODIAZEPINES SCREEN URINE NEGATIVE (NEGATIVE); *COCAINE SCREEN URINE NEGATIVE (NEGATIVE); CANNABINOID URINE SCREEN NEGATIVE (NEGATIVE); METHADONE URINE SCREEN NEGATIVE (NEGATIVE); OPIATES URINE SCREEN PRESUMTIVE POSITIVE (NEGATIVE); PHENCYCLIDINE URINE SCREEN NEGATIVE (NEGATIVE)
[2022-10-08] MEDS: VANCOMYCIN 1G PREMIX 200 ML IV SCH (13:02)
[2022-10-08 16:00] VITALS: BP 131/67
[2022-10-08 20:00] VITALS: BP 123/62
[2022-10-08] MEDS: ATORVASTATIN CALCIUM 20MG TABLET PO SCH (22:20)
[2022-10-09] VITALS (7 sets, daily range): BP systolic 100–117; BP diastolic 47–88
[2022-10-09] MEDS: ALBUTEROL (0.083%) 2.5MG/3ML NEB HHN SCH ×5 (01:47→20:45)
[2022-10-09] MEDS: IPRATROPIUM BROMIDE (0.02%) 0.5MG/2.5ML NEB HHN SCH ×5 (01:48→20:46)
[2022-10-09] MEDS: VANCOMYCIN 1G PREMIX 200 ML IV SCH (06:00)
[2022-10-09] MEDS: METFORMIN HCL 500MG TABLET PO SCH ×2 (07:25→17:17)
[2022-10-09] MEDS: CARVEDILOL 12.5MG TABLET PO SCH ×2 (09:00→17:00)
[2022-10-09] MEDS: ENOXAPARIN 40MG/0.4ML SYR SUBCUT SCH (09:00)
[2022-10-09] MEDS: DOCUSATE SODIUM 250MG CAPSULE PO SCH (09:39)
[2022-10-09] MEDS: ASPIRIN 81MG EC TABLET PO SCH (09:40)
[2022-10-09] MEDS: BACLOFEN 10MG TABLET PO SCH ×3 (09:40→17:17)
[2022-10-09] MEDS: FOLIC ACID 1MG TABLET PO SCH (09:40)
[2022-10-09] MEDS: GABAPENTIN 300MG CAPSULE PO SCH ×4 (09:40→20:33)
[2022-10-09] MEDS: ASCORBIC ACID 500 MG TABLET PO SCH (09:40)
[2022-10-09] MEDS: FUROSEMIDE 20MG TABLET PO SCH (09:40)
[2022-10-09] MEDS: FERROUS SULFATE 325MG TABLET PO SCH (09:40)
[2022-10-09] MEDS: LORATADINE 10MG TABLET PO SCH (09:40)
[2022-10-09] MEDS: MORPHINE SULFATE 15MG TABLET SR PO SCH ×2 (09:41→20:33)
[2022-10-09] MEDS ORDERED: LIDOCAINE HCL 1% 10 MG/ML 10ML VIAL ONE ×2 (10:19→10:57)
[2022-10-09] MEDS: ATORVASTATIN CALCIUM 20MG TABLET PO SCH (20:33)
== END 2022-10-09 21:08 | DRG 559 ==
LOC: ER 15:22 → MICUSO 19:29 → 7EST 10-05 02:50 → 6EST 10-09 12:54
PROVIDERS: ADMIT Internal Medicine; ATTEND Internal Medicine
PROC: 02HV33Z Insertion of Infusion Device into Superior Vena Cava, Percutaneous Approach (ICD-10-PCS; principal; 2022-10-09)
PROC: B5181ZA Fluoroscopy of Superior Vena Cava using Low Osmolar Contrast, Guidance (ICD-10-PCS; 2022-10-09)
PROC: B548ZZA Ultrasonography of Superior Vena Cava, Guidance (ICD-10-PCS; 2022-10-09)
DX: T84.53XA Infection and inflammatory reaction due to internal right knee prosthesis, initial encounter (principal); E43 Unspecified severe protein-calorie malnutrition; L03.115 Cellulitis of right lower limb; L97.919 Non-pressure chronic ulcer of unspecified part of right lower leg with unspecified severity; Z20.822 Contact with and (suspected) exposure to COVID-19; I50.9 Heart failure, unspecified; I11.0 Hypertensive heart disease with heart failure; E11.9 Type 2 diabetes mellitus without complications; E66.9 Obesity, unspecified; G35 Multiple sclerosis; J45.909 Unspecified asthma, uncomplicated; Z96.651 Presence of right artificial knee joint; Z88.0 Allergy status to penicillin; Z79.4 Long term (current) use of insulin; Z88.6 Allergy status to analgesic agent; Z68.33 Body mass index [BMI] 33.0-33.9, adult; Y84.8 Other medical procedures as the cause of abnormal reaction of the patient, or of later complication, without mention of misadventure at the time of the procedure; Y92.89 Other specified places as the place of occurrence of the external cause
CPT/HCPCS: 36415; 36573; 71045; 73560; 73700; 80048; 80053; 80061; 80202; 80305; 80320; 81003; 82550; 82962; 83036; 83605; 83880; 84145; 84484; 85025; 85651; 86803; 86850; 86900; 87340; 87426; 93970; 94640; 99285; C1725; J1650; J1956; J2270; J3370; J3490; G0480

== ENCOUNTER 2022-10-10 22:44 | Inpatient (IN) | payer MEDICARE, MEDICAID ==
[~2022-10-10] VITALS: Ht 167.6 cm; Wt 102.2 kg
[~2022-10-10 22:44] MED LIST changes: +BISA-81 PO; +CHOL400D7 PO; -CLAR10 PO; +FOLI-43 PO; +FURO20TA4 PO; +INSU100V3 SUBCUT; +LEVA15HF6 IH; +LORA10TA7 PO; +MELA5TAB21 PO; +MORP15TA67 PO; +SACU1TAB7 PO
[2022-10-10] MEDS ORDERED: METHYLPREDNISOLONE SOD SUCC 125 MG/2 ML VIAL IV STA (22:54)
[2022-10-10] MEDS ORDERED: IPRATROPIUM BROMIDE (0.02%) 0.5MG/2.5ML NEB HHN STA (22:54)
[2022-10-10] MEDS ORDERED: ALBUTEROL (0.083%) 2.5MG/3ML NEB HHN STA (22:54)
[2022-10-10] MEDS ORDERED: MAGNESIUM 2 G PREMIX 50 ML IV ONE (23:00)
[2022-10-11 00:02] LABS: BASOPHILS % 0.6 % (0.0-2.0); EOSINOPHILS % 8.3 % (0.0-5.0); HEMATOCRIT. 38.6 % (36.0-48.0); HEMOGLOBIN. 12.2 g/dL (12.0-16.0); MEAN CORPUSCULAR HEMOGLOBIN 27.9 pg (28.0-32.0); MEAN CORPUSCULAR VOLUME 87.9 fL (81.0-99.0); MEAN PLATELET VOLUME 9.2 fl (7.4-10.4); MONOCYTES % 8.5 % (2.0-8.0); NEUTROPHILS % 59.6 % (40.0-76.0); PLATELET 240 x1000/uL (130-400); RED BLOOD CELL COUNT 4.39 mill/uL (4.2-5.4); RED CELL DISTRIBUTION WIDTH 14.6 % (11.6-14.6)
[2022-10-11 00:17] LABS: CHLORIDE 102 mEq/L (98-107)
[2022-10-11 01:14] LABS: BG BASE EXCESS 2.6 mmol/L (-2.0-2.0); BG DEOXYHEMOGLOBIN 2.7 % (0.0-5.0); BG HCO3 ACT 28.3 mmol/L (22.0-26.0); BG METHEMOGLOBIN 0.3 % (0.0-1.5); BG OXYGEN SATURATION 97.3 % (92.0-98.5); BG PCO2 48.9 mmHg (35.0-45.0); BG PH 7.381 (7.350-7.450); BG PO2 100.7 mmHg (75.0-100.0); BG SAMPLE SITE RIGHT RADIAL; BG TOTAL HEMOGLOBIN 11.8 g/dL (12.0-18.0); BG VENT MODE NASAL CANNULA
[2022-10-11] MEDS ORDERED: SODIUM CHLORIDE 0.9% 1,000 ML IV ONE (01:15)
[2022-10-11] MEDS ORDERED: NOREPINEPHRINE 8 MG in DEXTROSE 5% WATER 250 ML IV NR (02:44)
[2022-10-11] MEDS ORDERED: ALBUTEROL (0.083%) 2.5MG/3ML NEB HHN PRN (06:30)
[2022-10-11] MEDS ORDERED: MORPHINE SULFATE 2 MG/ML CPJ (NOT FOR IM USE) IV PRN (06:30)
[2022-10-11] MEDS ORDERED: ONDANSETRON HCL 4MG/2ML INJ IV PRN (11:00)
[2022-10-11 12:00] VITALS: BP 114/48
[2022-10-11] MEDS: IPRATROPIUM/ALBUTEROL 0.5-3(2.5)MG/3ML NEB HHN SCH ×3 (12:20→20:59)
[2022-10-11] MEDS: ENOXAPARIN 40MG/0.4ML SYR SUBCUT SCH (13:00)
[2022-10-11] MEDS: VANCOMYCIN 1G PREMIX 200 ML IV SCH (13:00)
[2022-10-11] MEDS: METHYLPREDNISOLONE SOD SUCC 40 MG/ML VIAL IV SCH ×2 (13:02→22:45)
[2022-10-11 14:41] VITALS: BP 128/65
[2022-10-11 16:00] VITALS: BP 113/61
[2022-10-11 20:00] VITALS: BP 112/67
[2022-10-11] MEDS: MORPHINE SULFATE 15MG TABLET SR PO SCH (20:31)
[2022-10-11] MEDS: FAMOTIDINE 20MG TABLET PO SCH (20:34)
[2022-10-12] VITALS (7 sets, daily range): BP systolic 118–143; BP diastolic 59–94
[2022-10-12] MEDS: IPRATROPIUM/ALBUTEROL 0.5-3(2.5)MG/3ML NEB HHN SCH ×6 (00:42→20:58)
[2022-10-12] MEDS: METHYLPREDNISOLONE SOD SUCC 40 MG/ML VIAL IV SCH ×3 (05:46→23:03)
[2022-10-12] MEDS: VANCOMYCIN 1G PREMIX 200 ML IV SCH ×2 (05:46→23:12)
[2022-10-12] MEDS: MORPHINE SULFATE 15MG TABLET SR PO SCH ×2 (08:39→21:07)
[2022-10-12] MEDS: ENOXAPARIN 40MG/0.4ML SYR SUBCUT SCH (13:00)
[2022-10-12] MEDS: FAMOTIDINE 20MG TABLET PO SCH (21:05)
[2022-10-13 03:29] VITALS: BP 138/68
[2022-10-13 04:00] VITALS: BP 139/83
[2022-10-13] MEDS: IPRATROPIUM/ALBUTEROL 0.5-3(2.5)MG/3ML NEB HHN SCH ×2 (05:17→08:47)
[2022-10-13] MEDS: METHYLPREDNISOLONE SOD SUCC 40 MG/ML VIAL IV SCH (06:26)
[2022-10-13 07:21] LABS: CHLORIDE 105 mEq/L (98-107)
[2022-10-13 08:00] VITALS: BP 135/80
[2022-10-13] MEDS: MORPHINE SULFATE 15MG TABLET SR PO SCH (08:31)
== END 2022-10-13 10:35 | DRG 202 ==
LOC: ER 22:44 → 3WST 10-11 00:49 → EDBEDREQ 10-11 01:13 → EDBEDREQTM 10-11 01:13
PROVIDERS: ADMIT Internal Medicine; ATTEND Internal Medicine
DX: J45.901 Unspecified asthma with (acute) exacerbation (principal); M00.9 Pyogenic arthritis, unspecified; E11.9 Type 2 diabetes mellitus without complications; I11.0 Hypertensive heart disease with heart failure; I50.9 Heart failure, unspecified; Z88.0 Allergy status to penicillin; Z88.5 Allergy status to narcotic agent
CPT/HCPCS: 36415; 36600; 71045; 80048; 80053; 80202; 82375; 82805; 83880; 84484; 85025; 93005; 94640; 99285; J1650; J2270; J2920; J2930; J3370; J3475; J3490; J7030; J7060